=== PATIENT | female | born 1935 | race Caucasian/White ===

== ENCOUNTER 2019-12-03 10:53 | Inpatient (IN) | payer MEDICARE ==
[~2019-12-03] VITALS: Ht 162.6 cm; Wt 63.7 kg
[2019-12-03 11:42] LABS: BASO # 0.1 x10^3/uL (0.0-0.2); BASO % 1 % (0-3); EOS % 0 % (0-3); HEMATOCRIT 47.2 % (36.0-47.0); HEMOGLOBIN 15.8 g/dL (12.0-15.5); LYMPH # 1.1 x10^3/uL (1.0-4.8); LYMPH % 14 % (24-48); MEAN CORPUSCULAR HEMOGLOBIN 30 pg (25-35); MEAN CORPUSCULAR HGB CONC 34 g/dL (31-37); MEAN CORPUSCULAR VOLUME 89 fL (79-100); MONO # 0.6 x10^3/uL (0.0-1.1); MONO % 8 % (0-9); NEUT # 6.1 x10^3uL (1.8-7.7); NEUT % 78 % (31-73); PLATELET COUNT 384 x10^3/uL (140-400); RED CELL DISTRIBUTION WIDTH 13.9 % (11.5-14.5); WHITE BLOOD COUNT 7.8 x10^3/uL (4.0-11.0)
--- NOTE | 2019-12-03 11:49 | PHYS DOC ---
Past History Past Medical History: Hypertension Smoking: Non-smoker General Adult EDM: Chief Complaint: PSYCH EVALUATION HPI: HPI: Patient is an 84-year-old female who presents to the emergency department for evaluation. She has been having increasing confusion over the past several months according to her daughter and recently began experiencing some hallucinations, both auditory and delusional, over the past 2 months. Her PCP recommended [facility] hospitalization and the patient presents to the emergency department for medical clearance. She has no acute complaints at this time. She denies any pain, recent fevers and has not been ill recently. Review of Systems: Review of Systems: Constitutional: Denies fever or chills Eyes: Denies change in visual acuity HENT: Denies nasal congestion or sore throat Respiratory: Denies cough or shortness of breath Cardiovascular: Denies chest pain or edema GI: Denies abdominal pain, nausea, vomiting, bloody stools or diarrhea : Denies dysuria Musculoskeletal: Denies back pain or joint pain Integument: Denies rash Neurologic: Denies headache, focal weakness or sensory changes Endocrine: Denies polyuria or polydipsia Lymphatic: Denies swollen glands Psychiatric: Denies depression or anxiety Heart Score: Risk Factors: Risk Factors: DM, Current or recent (<one month) smoker, HTN, HLP, family history of CAD, obesity. Risk Scores: Score 0 - 3: 2.5% MACE over next 6 weeks - Discharge Home Score 4 - 6: 20.3% MACE over next 6 weeks - Admit for Clinical Observation Score 7 - 10: 72.7% MACE over next 6 weeks - Early Invasive Strategies Allergies: Allergies: Allergies Coded Allergies Type Severity Reaction Last Updated Verified atorvastatin Allergy Unknown 12/03/19 Yes colesevelam Allergy Unknown 12/03/19 Yes donepezil Allergy Unknown 12/03/19 Yes pravastatin Allergy Unknown 12/03/19 Yes rosuvastatin Allergy Unknown 12/03/19 Yes Physical Exam: PE: PHYSICAL EXAM: CONSTITUTIONAL: Well developed, well nourished HEAD: normocephalic, atraumatic EENT: PERRL, EOMI. Conjunctivae normal color, sclerae non-icteric; moist mucous membranes. NECK: Supple, non-tender; no meningismus. LUNGS: Lungs CTA, breathing even and unlabored. Normal air movement. HEART: Regular rate and rhythm, no murmur CHEST: No deformity; non-tender ABDOMEN: The abdomen is soft, and non-tender, no masses or bruits. EXTREM: Normal ROM; no deformity, no calf tenderness. Normal pulses palpable in all extremities. There is no pedal edema. SKIN: No rash; no diaphoresis NEURO: Alert; normal speech, mildly impaired cognition; CN's grossly intact; strength grossly intact without focal deficit. BACK: No CVA TTP. Current Patient Data: Labs: Laboratory Tests Test 12/03/19 11:18 White Blood Count 7.8 x10^3/uL (4.0-11.0) Red Blood Count 5.30 x10^6/uL (3.50-5.40) Hemoglobin 15.8 g/dL (12.0-15.5) H Hematocrit 47.2 % (36.0-47.0) H Mean Corpuscular Volume 89 fL (79-100) Mean Corpuscular Hemoglobin 30 pg (25-35) Mean Corpuscular Hemoglobin Concent 34 g/dL (31-37) Red Cell Distribution Width 13.9 % (11.5-14.5) Platelet Count 384 x10^3/uL (140-400) Neutrophils (%) (Auto) 78 % (31-73) H Lymphocytes (%) (Auto) 14 % (24-48) L Monocytes (%) (Auto) 8 % (0-9) Eosinophils (%) (Auto) 0 % (0-3) Basophils (%) (Auto) 1 % (0-3) Neutrophils # (Auto) 6.1 x10^3uL (1.8-7.7) Lymphocytes # (Auto) 1.1 x10^3/uL (1.0-4.8) Monocytes # (Auto) 0.6 x10^3/uL (0.0-1.1) Eosinophils # (Auto) 0.0 x10^3/uL (0.0-0.7) Basophils # (Auto) 0.1 x10^3/uL (0.0-0.2) Vital Signs: Vital Signs Date Time Temp Pulse Resp B/P (MAP) Pulse Ox O2 Delivery O2 Flow Rate FiO2 12/03/19 11:12 97.9 118 16 168/84 (112) 96 Room Air EKG: EKG: Normal sinus rhythm at a rate of 114 bpm, left axis deviation, right bundle branch block, there are no acute ischemic ST/T changes. [] Radiology/Procedures: Radiology/Procedures: [] Course & Med Decision Making: Course & Med Decision Making Pertinent Lab studies reviewed. (See chart for details) [] Patient is medically stable for psychiatric admission and will be transferred to the U. Dragon Disclaimer: Dragon Disclaimer: This electronic medical record was generated, in whole or in part, using a voice recognition dictation system. Departure Departure: Impression: Primary Impression: Psychosis Disposition: ADMITTED INPATIENT ([facility]) Condition: STABLE Referrals: MARISOL KAUR MD (PCP) FRED COLEMAN MD December 03, 2019 11:49
[2019-12-03 11:52] LABS: CALCIUM 10.4 mg/dL (8.5-10.1); CREATININE 0.8 mg/dL (0.6-1.0); GFR 68.2
[2019-12-03 11:58] LABS: ALBUMIN/GLOBULIN RATIO 1.1 (1.0-1.7); MAGNESIUM 2.2 mg/dL (1.8-2.4); TOTAL BILIRUBIN 0.3 mg/dL (0.2-1.0); TOTAL PROTEIN 7.6 g/dL (6.4-8.2)
[2019-12-03 12:06] LABS: BILIRUBIN,URINE NEG (NEG); CLARITY,URINE CLEAR; COLOR,URINE YELLOW; GLUCOSE,URINE NEG (NEG)
[2019-12-03 12:07] LABS: BACTERIA,URINE 0 /HPF (0-FEW); NITRITE,URINE NEG (NEG); RBC,URINE OCC /HPF (0-2); SQUAMOUS EPITHELIAL CELL,UR FEW /LPF; UROBILINOGEN,URINE 0.2 mg/dL (0.2 mg/dL); WBC,URINE OCC /HPF (0-4)
[2019-12-03 14:00] VITALS: BP 164/86
[2019-12-03] MEDS ORDERED: ACETAMINOPHEN 325 MG TABLET PO PRN (14:15)
[2019-12-03] MEDS ORDERED: MAG HYDROX/AL HYDROX/SIMETH 30 ML ORAL.SUSP PO PRN (14:15)
[2019-12-03] MEDS ORDERED: METHYL SALICYLATE/MENTHOL TOPICAL OINTMENT 57GM TUBE. TP PRN (14:15)
[2019-12-03] MEDS ORDERED: MAGNESIUM HYDROXIDE 2,400 MG/30 ML ORAL.SUSP. PO PRN (14:15)
[2019-12-03] MEDS ORDERED: VENL150C PO (14:53)
[2019-12-03] MEDS ORDERED: VENL37.5 PO (14:53)
[2019-12-03] MEDS ORDERED: EZET10TA49 PO (14:53)
[2019-12-03] MEDS ORDERED: OMEG10005 PO (14:53)
[2019-12-03] MEDS ORDERED: MIRT15TA PO (14:53)
[2019-12-03] MEDS ORDERED: LISI10TA2 PO (14:53)
[2019-12-03] MEDS ORDERED: OMEP20TA8 PO (14:53)
[2019-12-03] MEDS ORDERED: DIPH25CA58 PO (14:53)
[2019-12-03] MEDS ORDERED: BIOT5000 PO (14:53)
[2019-12-03] MEDS ORDERED: MULT-245 PO (14:53)
[2019-12-03] MEDS ORDERED: ACET500T68 PO ×2 (14:53)
[2019-12-03] MEDS ORDERED: LORA10TA3 PO (14:53)
[2019-12-03] MEDS ORDERED: MAGN200T PO (14:53)
[2019-12-03] MEDS ORDERED: METF500T11 PO (14:53)
[2019-12-03] MEDS ORDERED: CHOL100013 PO (14:53)
[2019-12-03] MEDS ORDERED: NON FORMULARY ITEM (Loratadine 10 MG) PO PRN (15:00)
[2019-12-03] MEDS ORDERED: NON FORMULARY ITEM (Omeprazole 20 MG) PO PRN (15:00)
[2019-12-03] MEDS ORDERED: CETIRIZINE HCL 10 MG TABLET PO PRN (15:45)
--- NOTE | 2019-12-03 16:04 | RAD ---
RS Compliance Statement: One or more of the following individualized dose reduction techniques were utilized for this examination: 1. Automated exposure control 2. Adjustment of the mA and/or kV according to patient size 3. Use of iterative reconstruction technique CT HEAD WITHOUT CONTRAST History: Recent onset auditory hallucinations. Comparison: None. Technique: Axial images are obtained of the head from the skull base through the vertex without IV contrast. Findings: No mass-effect, midline shift, extra-axial fluid collection, hemorrhage, or obvious acute infarction is identified. Basilar cisterns are patent. The ventricles and sulci are prominent, consistent with age-related cerebral atrophy. There is minimal periventricular white matter hypoattenuation. This is a nonspecific finding but is commonly due to chronic small vessel ischemic disease. Bone windows demonstrate no acute calvarial abnormality. The visualized paranasal sinuses are clear. Mastoid air cells are well aerated. IMPRESSION: 1. No acute intracranial abnormality. 2. Generalized cerebral atrophy. Electronically signed by: Ronnell Wallace MD (12/03/2019 4:01 PM) [id number]
[2019-12-03 16:08] VITALS: BP 164/85
--- NOTE | 2019-12-03 20:30 | CONS ---
DATE OF CONSULTATION: 12/03/2019 REASON FOR CONSULTATION: Medical management. HISTORY OF PRESENT ILLNESS: The patient is an 84-year-old female patient who was admitted to [facility] from home on account of new onset of psychotic disorder, unspecified. She basically has increased anxiety, insomnia. She also has auditory hallucination, thinks neighbors can hear her and watch her via camera and installed electronics in her brain to track her. She also said that she hears music constantly and also hear people trying to influence her, all this started about according to her 6 weeks ago and the noise does not allow her to sleep. PAST MEDICAL HISTORY: Significant for type 2 diabetes mellitus, hypertension, hyperlipidemia, generalized osteoarthritis, plantar fasciitis, polymyalgia rheumatica. PAST SURGICAL HISTORY: Unremarkable. FAMILY HISTORY: Noncontributory. SOCIAL HISTORY: She lives alone. She has one daughter. She does not smoke, drink alcohol or use recreational drugs. 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 ALLERGIES: SHE IS ALLERGIC TO ATORVASTATIN, ARICEPT, PRAVASTATIN, ROSUVASTATIN. MEDICATIONS: She is currently on following medications: She is on diphenhydramine 25 mg at bedtime, loratadine 10 mg once a day as needed, Zetia 10 mg once a day, omega-3 fatty acid 1000 mg daily, lisinopril 10 mg once a day, Tylenol 500 mg as needed for pain, Tylenol 500 mg at bedtime scheduled. She is on mirtazapine 7.5 mg at bedtime, venlafaxine for Effexor XR 150 mg once a day, venlafaxine XR 75 mg daily. She is on magnesium 200 mg daily, omeprazole 20 mg once a day, metformin 500 mg once a day, Biotin 5000 mcg tablet once a day, and vitamin D3 25 mcg once a day, multivitamin 1 tablet once a day. PHYSICAL EXAMINATION: GENERAL: On examining her, the patient looked well and was clearly in no apparent respiratory distress. There was no pallor, jaundice, cyanosis or thyromegaly. No jugular venous distention. No limb edema. VITAL SIGNS: Her heart rate was 115, blood pressure was 164/85, temperature was 98.3, respiratory rate was 20, and oxygen saturation was 94% on room air. HEAD, EYES, EARS, NOSE AND THROAT: She is normocephalic, atraumatic. NECK: Supple. CARDIAC: Normal first and second heart sounds. No gallop, rub or murmur. CHEST: Clear to auscultation. No crepitation or rhonchi. ABDOMEN: Distended, soft, nontender. No guarding or rigidity. No organomegaly. All hernial orifice intact. Bowel sounds normal. NEUROLOGIC: She was alert. All her cranial nerves are intact. EXTREMITIES: She moves extremities without difficulty. She ambulates without assistance or assistive devices. LABORATORY DATA: Showed a white cell count of 7800, hemoglobin 16, hematocrit 47, MCV 89 and platelet count 384,000. Her chemistry showed a serum sodium 138, potassium 4, chloride 101, bicarbonate 28, anion gap of 9, BUN 13, creatinine 0.8, estimated GFR was 68 mL per minute. Her glucose was 130. Her calcium was 7.4, magnesium was normal at 2.2. Total bilirubin, AST, ALT, alkaline phosphatase were normal. Her total protein was 7.6, albumin 4. Urinalysis was essentially unremarkable. The urine was yellow, clear with a pH of 7, specific gravity of 1.020, urine was negative for protein, glucose, ketones, blood, nitrites, and leukocyte esterase. There are occasional rbc's, occasional wbc's, and no bacteria. She did have a CT scan of the head, which basically showed no mass effect, midline shift, extraaxial fluid collection, hemorrhage or obvious acute infarction identified. Her basilar cisterns are patent. The ventricles and sulci are prominent consistent with age-related cerebral atrophy. There is minimal periventricular white matter hypoattenuation. This is a nonspecific finding, but is commonly due to chronic small vessel ischemic disease. Bone windows demonstrate no acute calvarial abnormality. The visualized paranasal sinuses are clear. Mastoid air cells are well aerated. ASSESSMENT AND PLAN: In summary, this is an 84-year-old female patient, who was admitted on account of increased anxiety, insomnia, auditory hallucination thinks neighbors can hear her, watching her via camera, installed electronics in her brain to track her. All this on a psychotic disorder, unspecified. Medically, she obviously somewhat hypertensive for which she is on lisinopril 10 mg once a day. She has also some tachycardia with heart rate of 110-115. She is known to have hyperlipidemia. She is also on metformin for a presumed type 2 diabetes mellitus, vitamin D deficiency, and carries a diagnosis of polymyalgia rheumatica. She did complain of some stiffness in her joints. My plan is to monitor her blood pressure and heart rate and she might require beta blockers to control both heart rate and blood pressure. I will also check her sed rate and C-reactive protein to see whether her polymyalgia rheumatica is active and whether that might be contributing to her auditory hallucination. I do not see any steroids on her list of medications and if the inflammatory markers are high, she might benefit from steroid treatment. CHRISTIE STEVENSON MD DR: CHELLY/heri JOB#: [id number] / [id number]
[2019-12-03] MEDS ORDERED: ACETAMINOPHEN 500 MG TABLET PO PRN (21:00)
[2019-12-03] MEDS: ACETAMINOPHEN 500 MG TABLET PO SCH (21:15)
[2019-12-03] MEDS: LISINOPRIL 10 MG TABLET PO SCH (21:15)
[2019-12-03] MEDS: MIRTAZAPINE 15 MG TABLET PO SCH (21:15)
--- NOTE | 2019-12-03 22:25 | PDOC ---
Exam Note: Benjamin Note: Please also refer to the separate dictated note~for this date of service dictated separately. Discussed the patient with Nursing staff reviewed the chart.~Reviewed interim history and current functioning. Reviewed vital signs,~Labs/ Radiology~and current medications noted below. Continue current treatment with the changes noted in the dictated addendum note Assessment: Vital Signs/I&O: Vital Signs Date Time Temp Pulse Resp B/P (MAP) Pulse Ox O2 Delivery O2 Flow Rate FiO2 12/03/19 21:15 115 164/85 12/03/19 20:37 98.2 95 12/03/19 16:08 20 12/03/19 11:21 Room Air Labs: Laboratory Tests Test 12/03/19 11:08 12/03/19 11:18 Urine Collection Type Unknown Urine Color Yellow Urine Clarity Clear Urine pH 7.0 Urine Specific Greer 1.020 Urine Protein Neg (NEG-TRACE) Urine Glucose (UA) Neg mg/dL (NEG) Urine Ketones (Stick) Neg mg/dL (NEG) Urine Blood Neg (NEG) Urine Nitrite Neg (NEG) Urine Bilirubin Neg (NEG) Urine Urobilinogen Dipstick 0.2 mg/dL (0.2 mg/dL) Urine Leukocyte Esterase Neg (NEG) Urine RBC Occ /HPF (0-2) Urine WBC Occ /HPF (0-4) Urine Squamous Epithelial Cells Few /LPF Urine Bacteria 0 /HPF (0-FEW) Urine Mucus Slight /LPF White Blood Count 7.8 x10^3/uL (4.0-11.0) Red Blood Count 5.30 x10^6/uL (3.50-5.40) Hemoglobin 15.8 g/dL (12.0-15.5) H Hematocrit 47.2 % (36.0-47.0) H Mean Corpuscular Volume 89 fL (79-100) Mean Corpuscular Hemoglobin 30 pg (25-35) Mean Corpuscular Hemoglobin Concent 34 g/dL (31-37) Red Cell Distribution Width 13.9 % (11.5-14.5) Platelet Count 384 x10^3/uL (140-400) Neutrophils (%) (Auto) 78 % (31-73) H Lymphocytes (%) (Auto) 14 % (24-48) L Monocytes (%) (Auto) 8 % (0-9) Eosinophils (%) (Auto) 0 % (0-3) Basophils (%) (Auto) 1 % (0-3) Neutrophils # (Auto) 6.1 x10^3uL (1.8-7.7) Lymphocytes # (Auto) 1.1 x10^3/uL (1.0-4.8) Monocytes # (Auto) 0.6 x10^3/uL (0.0-1.1) Eosinophils # (Auto) 0.0 x10^3/uL (0.0-0.7) Basophils # (Auto) 0.1 x10^3/uL (0.0-0.2) Sodium Level 138 mmol/L (136-145) Potassium Level 4.0 mmol/L (3.5-5.1) Chloride Level 101 mmol/L (98-107) Carbon Dioxide Level 28 mmol/L (21-32) Anion Gap 9 (6-14) Blood Urea Nitrogen 13 mg/dL (7-20) Creatinine 0.8 mg/dL (0.6-1.0) Estimated GFR (Cockcroft-Gault) 68.2 BUN/Creatinine Ratio 16 (6-20) Glucose Level 130 mg/dL (70-99) H Calcium Level 10.4 mg/dL (8.5-10.1) H Magnesium Level 2.2 mg/dL (1.8-2.4) Total Bilirubin 0.3 mg/dL (0.2-1.0) Aspartate Amino Transferase (AST) 18 U/L (15-37) Alanine Aminotransferase (ALT) 25 U/L (14-59) Alkaline Phosphatase 65 U/L (46-116) Total Protein 7.6 g/dL (6.4-8.2) Albumin 4.0 g/dL (3.4-5.0) Albumin/Globulin Ratio 1.1 (1.0-1.7) Current Medications: Meds: Current Medications Medications (Trade) Dose Ordered Sig/Ed Route PRN Reason Start Time Stop Time Status Last Admin Dose Admin Acetaminophen (Tylenol) 500 mg QHS PO 12/03/19 21:00 12/03/19 21:15 Lisinopril (Prinivil) 10 mg HS PO 12/03/19 21:00 12/03/19 21:15 Mirtazapine (Remeron) 7.5 mg HS PO 5/12/20 21:00 12/03/19 21:15 Olanzapine (ZyPREXA ZYDIS) 2.5 mg PRN Q2HRS PRN PO psychosis/hallucinations 12/03/19 15:15 12/03/19 17:09 I have reviewed the current psychotropics carefully including drug interactions. Risk benefit ratio favors no change other than as noted in my dictated progress note. Diagnosis: Problems: (1) Psychosis SOHAN KEARNS MD December 03, 2019 22:25
--- NOTE | 2019-12-04 03:55 | EKG ---
[address] [address] Test Date: 2019-12-03 Test Time: 11:27:00 Pat Name: JORDAN PETTY Department: Room: [address] [place] [address] Gender: F Eligibility Counselor: GLADIS : 1935 Requested By: FRED COLEMAN Order Number: [id number] Reading MD: Mathew Peñaloza Measurements Intervals [place] Rate: 114 P: 38 KS: 152 QRS: -69 QRSD: 126 T: 56 QT: 330 QTc: 458 Interpretive Statements SINUS TACHYCARDIA ABNORMAL LEFT AXIS DEVIATION LEFT ANTERIOR FASCICULAR BLOCK RIGHT BUNDLE BRANCH BLOCK BIFASCICULAR BLOCK ABNORMAL ECG RI6.02 No previous ECG available for comparison Electronically Signed On 12-04-2019 8:27:33 CDT by Mathew Peñaloza
[2019-12-04 05:10] LABS: THYROXINE 7.7 ug/dL (4.5-12.0)
[2019-12-04 06:07] LABS: HEMOGLOBIN A1C 5.9 % (4.8-5.6)
[2019-12-04 06:25] VITALS: BP 131/79
[2019-12-04] MEDS: MAGNESIUM OXIDE 400 MG TABLET PO SCH (08:57)
[2019-12-04] MEDS: PANTOPRAZOLE 40 MG TABLET. PO SCH (08:58)
[2019-12-04] MEDS: CHOLECALCIFEROL (VITAMIN D3) 1,000 UNIT TABLET PO SCH (08:58)
[2019-12-04] MEDS: metFORMIN XR 500 MG TAB.ER.24H PO SCH (08:58)
[2019-12-04] MEDS: EZETIMIBE 10 MG TABLET PO SCH (08:58)
[2019-12-04] MEDS: MULTIVITAMIN I-VITE TABLET. PO SCH (08:58)
[2019-12-04] MEDS: OMEGA-3 FATTY ACIDS/FISH OIL 1,000 MG CAPSULE. PO SCH (08:58)
[2019-12-04] MEDS ORDERED: OMEGA PO SCH (09:00)
[2019-12-04] MEDS ORDERED: VENLAFAXINE XR 37.5 MG CAP.ER.24H. PO SCH ×2 (09:00)
[2019-12-04] MEDS ORDERED: CHOLECALCIFEROL 25 MCG PO SCH (09:00)
[2019-12-04] MEDS ORDERED: MAGNESIUM 200 MG PO SCH (09:00)
[2019-12-04] MEDS ORDERED: NON FORMULARY ITEM (Biotin 5,000 MCG) PO SCH (09:00)
[2019-12-04] MEDS ORDERED: NON FORMULARY ITEM (Venlafaxine Hcl (Effexor Xr) 150 MG) PO SCH (09:00)
[2019-12-04] MEDS ORDERED: NON FORMULARY ITEM (Multivitamin (Multi Vitamin Daily) 1 EACH) PO SCH (09:00)
--- NOTE | 2019-12-04 13:28 | HP ---
ADMIT DATE: 12/03/2019 This late entry covers elements not covered in my initial note, December 02. SUBJECTIVE: I met with the patient evening of December 02 for audiovisual rounds and previously discussed with nursing staff and Saskia Khan, property management coordinator. IDENTIFYING DATA: The patient is an 84-year-old female referred to us from home by her primary care physician and the family on account of increased anxiety, marked insomnia, having auditory hallucinations. The patient was thinking that the neighbors could hear her and were watching her via the camera and had installed electronics in her brain to track her. She was paranoid, psychotic, agitated, had failed outpatient psychiatric intervention resulting in this referral. CHIEF COMPLAINT: "You need to talk to my daughter Anita." The patient was initially very hesitant sharing information and she was aware of her psychotic symptoms, which she alluded to much more openly as the visit proceeded than she had initially. HISTORY OF PRESENT ILLNESS: The patient reportedly has had worsening psychotic symptoms, paranoia, delusions with marked insomnia, agitation. There has been nothing psychosocially to account for this change that has been stressful, but behaviors have been unmanageable at the home and have failed outpatient psychiatric interventions. No clear history of bipolar disorder. Cognitively, she has been reasonably intact, though she may have some short-term memory deficits and incipient dementia, Alzheimer's vascular. PAST PSYCHIATRIC HISTORY: As above. MEDICAL HISTORY: Positive for hyperlipidemia, osteoarthritis, plantar fasciitis, polymyalgia rheumatica, hypertension. CODE STATUS: DNR. ALLERGIES: ARICEPT, WELCHOL, LIPITOR, CRESTOR, PRAVASTATIN. ACCU-CHEKS: None. DIET: Regular. Takes medications whole, ambulates independently. COVID-19 test was negative prior to admission. UA is negative. CURRENT PSYCHOTROPICS: Remeron 7.5 mg at bedtime, Effexor 225 mg daily, Zyprexa was added p.r.n. for psychosis, agitation, following admission after the nursing staff called me as an emergency due to her marked psychotic symptoms, agitation, restlessness, hallucinations and being fearful of all of this. FAMILY HISTORY: Noncontributory. SOCIAL HISTORY: The patient has no history of alcohol, drug abuse, physical, sexual or elder abuse. She is not known to be a perpetrator. 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 LABORATORY DATA: Reviewed. REVIEW OF SYSTEMS: No CV, , pulmonary, eye, ENT system symptoms on review. MENTAL STATUS EXAMINATION: The patient was seen individually and also discussed with LONI Copeland. Initially, she was quite paranoid, suspicious, not very forthcoming on audiovisual rounds, but much better as the session progressed. Speech is coherent, abstraction fair, computation somewhat impaired, language function intact, attention span short. The patient has had active hallucinations since admission, paranoia. No active suicidal or homicidal ideation. LABORATORY DATA: Reviewed. IMPRESSION: Psychotic disorder, unspecified versus major depressive disorder with psychotic features; mild cognitive impairment; anxiety disorder, unspecified. Rest as above. PLAN: Admit to [facility]iat[facility] at [facility]. I will see the patient daily individually from a psychiatric standpoint. Medical followup per Dr. Vale. Continue the patient on her current psychotropics, Zyprexa was added p.r.n. 2.5 mg q. 2 hours, maximum 10 mg in 24 hours for psychosis, agitation. May consider reducing the Effexor given her age and propensity to exacerbate some psychotic symptoms. We will use Zyprexa p.r.n. Consider adding scheduled Risperdal or low dose Seroquel. We will have a CT head as workup of any intracranial changes accounting for her psychotic symptoms. We will make further adjustments as clinically indicated. Estimated length of stay 10-12 days. DISPOSITION PLANS: Possibly back home with outpatient psychiatric followup. SOHAN KEARNS MD DR: MATT/heri JOB#: [id number] / [id number]
[2019-12-04 14:46] LABS: THYROID STIM HORMONE (TSH) 0.956 uIU/mL (0.358-3.740)
[2019-12-04 15:49] VITALS: BP 101/66
[2019-12-04 19:49] VITALS: BP 109/71
[2019-12-04] MEDS: MIRTAZAPINE 15 MG TABLET PO SCH (20:14)
[2019-12-04] MEDS: ACETAMINOPHEN 500 MG TABLET PO SCH (20:14)
[2019-12-04] MEDS: risperiDONE 0.25 MG TABLET. PO SCH (20:15)
[2019-12-04 21:21] VITALS: BP 117/71
[2019-12-04] MEDS: LISINOPRIL 10 MG TABLET PO SCH (21:43)
[2019-12-04] MEDS: diphenhydrAMINE HCL 25 MG CAPSULE PO PRN (21:43)
--- NOTE | 2019-12-04 21:58 | PDOC ---
Exam Note: Benjamin Note: Please also refer to the separate dictated note~for this date of service dictated separately.~Patient seen individually. Discussed the patient with Nursing staff reviewed the chart.~Reviewed interim history and current functioning. Reviewed vital signs,~Labs/ Radiology~and current medications noted below. Continue current treatment with the changes noted in the dictated addendum note Assessment: Vital Signs/I&O: Vital Signs Date Time Temp Pulse Resp B/P (MAP) Pulse Ox O2 Delivery O2 Flow Rate FiO2 12/04/19 21:43 105 117/71 12/04/19 20:18 98.1 96 12/04/19 19:49 18 Room Air I & O 12/03/19 12/03/19 12/04/19 15:00 23:00 07:00 Intake Total 340 ml Balance 340 ml Labs: Laboratory Tests Test 12/04/19 06:01 C-Reactive Protein < 0.5 mg/L (0-3.3) Current Medications: Meds: Current Medications Medications (Trade) Dose Ordered Sig/Ed Route PRN Reason Start Time Stop Time Status Last Admin Dose Admin EZETIMIBE (Zetia) 10 mg DAILY PO 12/04/19 09:00 12/04/19 08:58 Metformin HCl (Glucophage Xr) 500 mg DAILYWBKFT PO 12/04/19 08:00 12/04/19 08:58 Vitamin D (Vitamin D3) 1,000 unit DAILY PO 12/04/19 09:00 12/04/19 08:58 Magnesium Oxide (Magnesium Oxide) 200 mg DAILY PO 12/04/19 09:00 12/04/19 08:57 Multivitamins/ Minerals (I-Eliu) 1 tab DAILY PO 12/04/19 09:00 12/04/19 08:58 Fish Oil (Fish Oil) 1,000 mg DAILY PO 12/04/19 09:00 12/04/19 08:58 Pantoprazole Sodium (Protonix) 40 mg DAILYAC PO 12/04/19 07:30 12/04/19 08:58 Venlafaxine HCl (Effexor Xr) 225 mg DAILY PO 12/04/19 09:00 12/04/19 14:32 DC 12/04/19 08:57 Risperidone (RisperDAL) 0.125 mg QHS PO 12/04/19 21:00 12/04/19 20:15 I have reviewed the current psychotropics carefully including drug interactions. Risk benefit ratio favors no change other than as noted in my dictated progress note. Diagnosis: Problems: (1) Psychosis (2) Major depressive disorder with psychotic features (3) Mild cognitive impairment (4) Anxiety disorder, unspecified (5) Psychotic disorder SOHAN KEARNS MD December 04, 2019 21:58
[2019-12-04] MEDS ORDERED: traZODone 50 MG TABLET. PO PRN (23:00)
[2019-12-05 05:16] VITALS: BP 160/81
[2019-12-05 06:03] LABS: BASO % 1 % (0-3); EOS # 0.1 x10^3/uL (0.0-0.7); EOS % 3 % (0-3); HEMATOCRIT 41.7 % (36.0-47.0); LYMPH # 0.9 x10^3/uL (1.0-4.8); LYMPH % 20 % (24-48); MEAN CORPUSCULAR HEMOGLOBIN 30 pg (25-35); MEAN CORPUSCULAR HGB CONC 34 g/dL (31-37); MEAN CORPUSCULAR VOLUME 89 fL (79-100); MONO # 0.5 x10^3/uL (0.0-1.1); MONO % 11 % (0-9); NEUT % 65 % (31-73); PLATELET COUNT 289 x10^3/uL (140-400); RED BLOOD COUNT 4.69 x10^6/uL (3.50-5.40); RED CELL DISTRIBUTION WIDTH 14.1 % (11.5-14.5); WHITE BLOOD COUNT 4.6 x10^3/uL (4.0-11.0)
[2019-12-05 06:18] LABS: ALBUMIN 3.2 g/dL (3.4-5.0); ALBUMIN/GLOBULIN RATIO 1.1 (1.0-1.7); CREATININE 0.8 mg/dL (0.6-1.0); GFR 68.2; POTASSIUM 3.7 mmol/L (3.5-5.1); TOTAL BILIRUBIN 0.3 mg/dL (0.2-1.0); TOTAL PROTEIN 6.1 g/dL (6.4-8.2)
[2019-12-05] MEDS: PANTOPRAZOLE 40 MG TABLET. PO SCH (08:41)
[2019-12-05] MEDS: MAGNESIUM OXIDE 400 MG TABLET PO SCH (08:41)
[2019-12-05] MEDS: OMEGA-3 FATTY ACIDS/FISH OIL 1,000 MG CAPSULE. PO SCH (08:41)
[2019-12-05] MEDS: VENLAFAXINE XR 37.5 MG CAP.ER.24H. PO SCH (08:42)
[2019-12-05] MEDS: metFORMIN XR 500 MG TAB.ER.24H PO SCH (08:42)
[2019-12-05] MEDS: EZETIMIBE 10 MG TABLET PO SCH (08:44)
[2019-12-05] MEDS: MULTIVITAMIN I-VITE TABLET. PO SCH (08:44)
[2019-12-05] MEDS: CHOLECALCIFEROL (VITAMIN D3) 1,000 UNIT TABLET PO SCH (08:44)
--- NOTE | 2019-12-05 12:42 | TX PLAN ---
Interdisciplinary Tx Plan Admission Information December 03, 2019 at 13:37 Legal Status (on Admission): Voluntary DPOA/Guardian Name: Meka Humphrey Contact Verified Code Status: DNR Allergies: Coded Allergies: atorvastatin (Verified Allergy, Unknown, 12/03/19) colesevelam (Verified Allergy, Unknown, 12/03/19) donepezil (Verified Allergy, Unknown, 12/03/19) pravastatin (Verified Allergy, Unknown, 12/03/19) rosuvastatin (Verified Allergy, Unknown, 12/03/19) Diagnoses Primary Diagnosis: Psychotic D/O unspecified Reasons for Admission: Delusions, Sig. Change Sleep, Anxiety/Panic, Confusion/Disoriented Problem in Patient's Words: She has significantly declined over the last 2 months and cannot bring herself out of it. Additional Admission Comments: According to the intake, pt has increased anxiety, insomnia, auditory hallucinations, thinks the neighbors can hear her and are watching her via camera; thinks they installed electronics in her brain to track her. Pt is scared to live at home Problems Active Problems: Anxiety Auditory hallucinations Poor sleep Paranoia Inactive Problems: Medication compliant Pt Strengths/Limitations Ability for [place]: Fair Cognitive Functioning/Ability: Fair Communication Skills/Ability: Fair Financial Resources: Poor Insight/Judgement: Fair Intellectual Ability: Fair Physical Health: Fair Social Skills: Fair Stability in Family: Fair Stability in School/Work: Fair Verbal Skills: Fair Discharge Criteria Discharge Criteria: Able meet basic life need, Able to meet health needs, Adequate arrangements @DC, Verbal commit aftercare, Adequate self-care, Improved behavior, Improved mood/thought Preliminary Discharge Plan Preliminary DC Plan: Placement Needed Special Precautions Fall Risk: Low Initial D/C Plan Pt does not wish to return to her [facility]; placement may be needed. Identified Discharge Needs: Pt will need a different living situation. Home with services versus an JF Currently Utilized Resources Currently Utilized Resources/P: Primary Care Physician Neurologist Referrals Community Resources: Mental Health services Identified Problems/Hx/Goals Objectives/Short-Term Goals Short Term Goals: Dec. Hallucination/Delus, Medication Stabilization, No Suicidal/Romulo. ideation, Promote Coping Skill Short Term Goals in Patient's: I want to be at peace and not have to live like this all the time. Interventions/Frequency Staff Interventions/Frequency&: Psychiatrist to see pt at least 3x per week. Social Work to see pt at least 2x per week. Nursing to assess and complete 15 minute checks daily. Encourage group and activity participation OR 1:1 time based on activity therapy assessment/goals. 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 Education: Pt graduated high school in the 12th grade. Community Follow-up Needs to continue to follow-up with PCP May need appointment with Estephanie Ross for continued mental health services. Community Provider/Family Inpu: She has not been okay in the last 2 months. She needs to be evaluated and next steps need to be decided. 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
[2019-12-05 15:37] VITALS: BP 131/75
[2019-12-05] MEDS: LISINOPRIL 10 MG TABLET PO SCH (20:44)
[2019-12-05] MEDS: MIRTAZAPINE 15 MG TABLET PO SCH (20:44)
[2019-12-05] MEDS: traZODone 50 MG TABLET. PO SCH (20:44)
[2019-12-05] MEDS: risperiDONE 0.25 MG TABLET. PO SCH (20:45)
[2019-12-05] MEDS: ACETAMINOPHEN 500 MG TABLET PO SCH (20:45)
--- NOTE | 2019-12-05 21:54 | PN ---
DATE: 12/04/2019 PSYCHIATRIC PROGRESS NOTE SUBJECTIVE: The patient was seen on , evening of 12/04/2019 individually. Per LONI Copeland, the patient slept for three-quarter hours previous night, was anxious, restless, having intermittent delusions, received Zyprexa at 3:20 p.m. Additionally, she is on Effexor XR 225 mg a day. We will reduce to 150 mg a day since this could be exacerbating her psychotic symptoms. She is talking about hearing [employer] music in the background, someone talking in the background. CT head shows no acute changes, cerebral atrophy, ventricular or vascular changes. REVIEW OF SYSTEMS: No CV, , pulmonary, eye system symptoms on review. Hard of hearing, but she did put on her hearing aids as I talked to her. MENTAL STATUS EXAM: Reasonably oriented. Speech is coherent, abstraction fair, computation impaired, language function intact, attention span short. Mood and affect somewhat anxious, labile. LABORATORY DATA: Reviewed. IMPRESSION: Major depressive disorder, recurrent with psychotic features; psychotic disorder, unspecified; mild cognitive impairment versus major neurocognitive disorder, vascular with delusion, depression. Rest unchanged. PLAN: We will go ahead and start Risperdal 0.125 mg at bedtime for psychotic symptoms. She slept for 3/4 hours previous night. Continue Remeron 7.5 mg at bedtime, Effexor has been reduced. Zyprexa p.r.n. for now. MAN Jennifer KEARNS MD DR: MATT/heri JOB#: [id number] / [id number]
--- NOTE | 2019-12-05 22:05 | PDOC ---
Exam Note: Benjamin Note: Please also refer to the separate dictated note~for this date of service dictated separately.~Patient seen individually. Discussed the patient with Nursing staff reviewed the chart.~Reviewed interim history and current functioning. Reviewed vital signs,~Labs/ Radiology~and current medications noted below. Continue current treatment with the changes noted in the dictated addendum note Assessment: Vital Signs/I&O: Vital Signs Date Time Temp Pulse Resp B/P (MAP) Pulse Ox O2 Delivery O2 Flow Rate FiO2 12/05/19 21:04 98.2 95 12/05/19 20:44 112 131/75 12/05/19 15:37 20 12/05/19 05:16 Room Air I & O 12/04/19 12/04/19 12/05/19 15:00 23:00 07:00 Intake Total 720 ml 460 ml Balance 720 ml 460 ml Labs: Laboratory Tests Test 12/05/19 05:53 White Blood Count 4.6 x10^3/uL (4.0-11.0) Red Blood Count 4.69 x10^6/uL (3.50-5.40) Hemoglobin 14.0 g/dL (12.0-15.5) Hematocrit 41.7 % (36.0-47.0) Mean Corpuscular Volume 89 fL (79-100) Mean Corpuscular Hemoglobin 30 pg (25-35) Mean Corpuscular Hemoglobin Concent 34 g/dL (31-37) Red Cell Distribution Width 14.1 % (11.5-14.5) Platelet Count 289 x10^3/uL (140-400) Neutrophils (%) (Auto) 65 % (31-73) Lymphocytes (%) (Auto) 20 % (24-48) L Monocytes (%) (Auto) 11 % (0-9) H Eosinophils (%) (Auto) 3 % (0-3) Basophils (%) (Auto) 1 % (0-3) Neutrophils # (Auto) 3.0 x10^3uL (1.8-7.7) Lymphocytes # (Auto) 0.9 x10^3/uL (1.0-4.8) L Monocytes # (Auto) 0.5 x10^3/uL (0.0-1.1) Eosinophils # (Auto) 0.1 x10^3/uL (0.0-0.7) Basophils # (Auto) 0.0 x10^3/uL (0.0-0.2) Sodium Level 140 mmol/L (136-145) Potassium Level 3.7 mmol/L (3.5-5.1) Chloride Level 105 mmol/L (98-107) Carbon Dioxide Level 29 mmol/L (21-32) Anion Gap 6 (6-14) Blood Urea Nitrogen 19 mg/dL (7-20) Creatinine 0.8 mg/dL (0.6-1.0) Estimated GFR (Cockcroft-Gault) 68.2 BUN/Creatinine Ratio 24 (6-20) H Glucose Level 118 mg/dL (70-99) H Calcium Level 9.0 mg/dL (8.5-10.1) Total Bilirubin 0.3 mg/dL (0.2-1.0) Aspartate Amino Transferase (AST) 18 U/L (15-37) Alanine Aminotransferase (ALT) 24 U/L (14-59) Alkaline Phosphatase 49 U/L (46-116) Total Protein 6.1 g/dL (6.4-8.2) L Albumin 3.2 g/dL (3.4-5.0) L Albumin/Globulin Ratio 1.1 (1.0-1.7) Current Medications: Meds: Current Medications Medications (Trade) Dose Ordered Sig/Ed Route PRN Reason Start Time Stop Time Status Last Admin Dose Admin Venlafaxine HCl (Effexor Xr) 150 mg DAILY PO 12/05/19 09:00 12/05/19 08:42 Trazodone HCl (Desyrel) 25 mg QHS PO 12/05/19 21:00 12/05/19 20:44 I have reviewed the current psychotropics carefully including drug interactions. Risk benefit ratio favors no change other than as noted in my dictated progress note. Diagnosis: Problems: (1) Psychosis (2) Mild cognitive impairment (3) Anxiety disorder, unspecified (4) Major depressive disorder with psychotic features (5) Psychotic disorder SOHAN KEARNS MD December 05, 2019 22:05
--- NOTE | 2019-12-05 22:14 | PN ---
DATE: 12/05/2019 PSYCHIATRIC PROGRESS NOTE This note covers elements not covered in my initial note 12/05/2019. SUBJECTIVE: I met with the patient evening of 12/05/2019 on audiovisual rounds and staffed a treatment team meeting with the entire team in the morning with the patient's daughter, Meka simmons. Reviewed her progress, some ongoing hallucinations despite initiating Risperdal 0.125 mg at bedtime. Appetite 68%, slept 4-1/2 hours previous night. Daughter gave a very helpful history of a psychotic break approximately 40 years ago with marked paranoia about the neighbors and this lasted about 2 or 3 weeks when she was about age 44 at that time. Her shortly thereafter. Her daughter feels there were significant psychosocial stresses in the patient's early life including that her father refused to attend her wedding. Towards the evening, her auditory and visual hallucinations seemed to increase. REVIEW OF SYSTEMS: Hard of hearing. No CV, , pulmonary, eye system symptoms on review. MENTAL STATUS EXAMINATION: Oriented to herself and situation. Speech is coherent, abstraction fair, computation impaired, language function intact, attention span short. Mood and affect withdrawn. LABORATORY DATA: Reviewed. IMPRESSION: Psychotic disorder, unspecified; early major neurocognitive disorder, Alzheimer, vascular with delusion, depression. Rest unchanged. PLAN: Daughter will try and obtain past psychiatric records for clarification of primary psychiatric diagnosis. Failing this, it would appear she has early stages of dementia, probably Alzheimer, vascular, which could be causing worsening of her psychosis. Nevertheless, she has had the psychotic symptoms in the distant past, which would point to a primary psychiatric disorder. We will treat symptomatically with Risperdal for psychotic symptoms and once we get the past records, may consider adding Depakote as a mood stabilizer, but best if we can avoid it. Maintain Remeron 7.5 mg at bedtime, Effexor was reduced to 150 mg a day, Zyprexa p.r.n., rest unchanged, and trazodone for insomnia. MAN Jennifer KEARNS MD DR: MATT/heri JOB#: [id number] / [id number]
[2019-12-06 06:37] VITALS: BP 170/90
[2019-12-06] MEDS: MULTIVITAMIN I-VITE TABLET. PO SCH (07:54)
[2019-12-06] MEDS: metFORMIN XR 500 MG TAB.ER.24H PO SCH (07:54)
[2019-12-06] MEDS: MAGNESIUM OXIDE 400 MG TABLET PO SCH (07:54)
[2019-12-06] MEDS: OMEGA-3 FATTY ACIDS/FISH OIL 1,000 MG CAPSULE. PO SCH (07:54)
[2019-12-06] MEDS: PANTOPRAZOLE 40 MG TABLET. PO SCH (07:54)
[2019-12-06] MEDS: EZETIMIBE 10 MG TABLET PO SCH (07:55)
[2019-12-06] MEDS: VENLAFAXINE XR 37.5 MG CAP.ER.24H. PO SCH (07:55)
[2019-12-06] MEDS: CHOLECALCIFEROL (VITAMIN D3) 1,000 UNIT TABLET PO SCH (07:55)
[2019-12-06 16:34] VITALS: BP 135/82
[2019-12-06] MEDS: MIRTAZAPINE 15 MG TABLET PO SCH (20:19)
[2019-12-06] MEDS: risperiDONE 0.25 MG TABLET. PO SCH (20:19)
[2019-12-06] MEDS: traZODone 50 MG TABLET. PO SCH (20:20)
[2019-12-06] MEDS: ACETAMINOPHEN 500 MG TABLET PO SCH (20:20)
[2019-12-06] MEDS: LISINOPRIL 10 MG TABLET PO SCH (20:20)
--- NOTE | 2019-12-06 22:14 | PDOC ---
Exam Note: Benjamin Note: Please also refer to the separate dictated note~for this date of service dictated separately.~Patient seen individually. Discussed the patient with Nursing staff reviewed the chart.~Reviewed interim history and current functioning. Reviewed vital signs,~Labs/ Radiology~and current medications noted below. Continue current treatment with the changes noted in the dictated addendum note Assessment: Vital Signs/I&O: Vital Signs Date Time Temp Pulse Resp B/P (MAP) Pulse Ox O2 Delivery O2 Flow Rate FiO2 12/06/19 20:20 104 135/82 12/06/19 20:00 98.5 95 Room Air 12/06/19 16:34 18 I & O 12/05/19 12/05/19 12/06/19 15:00 23:00 07:00 Intake Total 480 ml 120 ml Balance 480 ml 120 ml Current Medications: Meds: Current Medications Medications (Trade) Dose Ordered Sig/Ed Route PRN Reason Start Time Stop Time Status Last Admin Dose Admin Risperidone (RisperDAL) 0.25 mg QHS PO 12/06/19 21:00 12/06/19 20:19 I have reviewed the current psychotropics carefully including drug interactions. Risk benefit ratio favors no change other than as noted in my dictated progress note. Diagnosis: Problems: (1) Dementia, vascular, with delusions (2) Dementia, vascular, with depression (3) Dementia in Alzheimer's disease with delusions (4) Dementia in Alzheimer's disease with depression (5) Psychosis (6) Mild cognitive impairment (7) Anxiety disorder, unspecified (8) Major depressive disorder with psychotic features (9) Psychotic disorder SOHAN KEARNS MD December 06, 2019 22:14
[2019-12-07 06:27] LABS: BASO % 1 % (0-3); EOS # 0.1 x10^3/uL (0.0-0.7); EOS % 3 % (0-3); HEMATOCRIT 44.8 % (36.0-47.0); LYMPH # 1.7 x10^3/uL (1.0-4.8); LYMPH % 32 % (24-48); MEAN CORPUSCULAR HEMOGLOBIN 30 pg (25-35); MEAN CORPUSCULAR HGB CONC 33 g/dL (31-37); MEAN CORPUSCULAR VOLUME 89 fL (79-100); MONO # 0.5 x10^3/uL (0.0-1.1); MONO % 9 % (0-9); NEUT # 2.9 x10^3uL (1.8-7.7); NEUT % 56 % (31-73); PLATELET COUNT 294 x10^3/uL (140-400); RED BLOOD COUNT 5.02 x10^6/uL (3.50-5.40); RED CELL DISTRIBUTION WIDTH 13.9 % (11.5-14.5); WHITE BLOOD COUNT 5.2 x10^3/uL (4.0-11.0)
[2019-12-07 06:28] VITALS: BP 174/88
[2019-12-07 06:40] LABS: ALBUMIN 3.6 g/dL (3.4-5.0); ALBUMIN/GLOBULIN RATIO 1.1 (1.0-1.7); CALCIUM 9.3 mg/dL (8.5-10.1); CREATININE 0.8 mg/dL (0.6-1.0); GFR 68.2; POTASSIUM 4.4 mmol/L (3.5-5.1); TOTAL BILIRUBIN 0.4 mg/dL (0.2-1.0)
[2019-12-07] MEDS: PANTOPRAZOLE 40 MG TABLET. PO SCH (07:48)
[2019-12-07] MEDS: metFORMIN XR 500 MG TAB.ER.24H PO SCH (07:48)
[2019-12-07] MEDS: OMEGA-3 FATTY ACIDS/FISH OIL 1,000 MG CAPSULE. PO SCH (07:48)
[2019-12-07] MEDS: VENLAFAXINE XR 37.5 MG CAP.ER.24H. PO SCH (07:49)
[2019-12-07] MEDS: MULTIVITAMIN I-VITE TABLET. PO SCH (07:49)
[2019-12-07] MEDS: MAGNESIUM OXIDE 400 MG TABLET PO SCH (07:49)
[2019-12-07] MEDS: EZETIMIBE 10 MG TABLET PO SCH (07:50)
[2019-12-07] MEDS: CHOLECALCIFEROL (VITAMIN D3) 1,000 UNIT TABLET PO SCH (07:50)
[2019-12-07 16:05] VITALS: BP 118/70
[2019-12-07] MEDS: ACETAMINOPHEN 500 MG TABLET PO SCH (19:40)
[2019-12-07] MEDS: traZODone 50 MG TABLET. PO SCH (19:41)
[2019-12-07] MEDS: risperiDONE 0.25 MG TABLET. PO SCH (19:41)
[2019-12-07] MEDS: LISINOPRIL 10 MG TABLET PO SCH (19:41)
[2019-12-07] MEDS: MIRTAZAPINE 15 MG TABLET PO SCH (19:41)
--- NOTE | 2019-12-07 22:17 | PDOC ---
Exam Note: Benjamin Note: Please also refer to the separate dictated note~for this date of service dictated separately.~Patient seen individually. Discussed the patient with Nursing staff reviewed the chart.~Reviewed interim history and current functioning. Reviewed vital signs,~Labs/ Radiology~and current medications noted below. Continue current treatment with the changes noted in the dictated addendum note Assessment: Vital Signs/I&O: Vital Signs Date Time Temp Pulse Resp B/P (MAP) Pulse Ox O2 Delivery O2 Flow Rate FiO2 12/07/19 20:28 98.2 95 12/07/19 19:41 108 118/70 12/07/19 16:05 20 Room Air I & O 12/06/19 12/06/19 12/07/19 15:00 23:00 07:00 Intake Total 840 ml 360 ml Balance 840 ml 360 ml Labs: Laboratory Tests Test 12/07/19 06:14 White Blood Count 5.2 x10^3/uL (4.0-11.0) Red Blood Count 5.02 x10^6/uL (3.50-5.40) Hemoglobin 15.0 g/dL (12.0-15.5) Hematocrit 44.8 % (36.0-47.0) Mean Corpuscular Volume 89 fL (79-100) Mean Corpuscular Hemoglobin 30 pg (25-35) Mean Corpuscular Hemoglobin Concent 33 g/dL (31-37) Red Cell Distribution Width 13.9 % (11.5-14.5) Platelet Count 294 x10^3/uL (140-400) Neutrophils (%) (Auto) 56 % (31-73) Lymphocytes (%) (Auto) 32 % (24-48) Monocytes (%) (Auto) 9 % (0-9) Eosinophils (%) (Auto) 3 % (0-3) Basophils (%) (Auto) 1 % (0-3) Neutrophils # (Auto) 2.9 x10^3uL (1.8-7.7) Lymphocytes # (Auto) 1.7 x10^3/uL (1.0-4.8) Monocytes # (Auto) 0.5 x10^3/uL (0.0-1.1) Eosinophils # (Auto) 0.1 x10^3/uL (0.0-0.7) Basophils # (Auto) 0.0 x10^3/uL (0.0-0.2) Sodium Level 141 mmol/L (136-145) Potassium Level 4.4 mmol/L (3.5-5.1) Chloride Level 104 mmol/L (98-107) Carbon Dioxide Level 31 mmol/L (21-32) Anion Gap 6 (6-14) Blood Urea Nitrogen 13 mg/dL (7-20) Creatinine 0.8 mg/dL (0.6-1.0) Estimated GFR (Cockcroft-Gault) 68.2 BUN/Creatinine Ratio 16 (6-20) Glucose Level 149 mg/dL (70-99) H Calcium Level 9.3 mg/dL (8.5-10.1) Total Bilirubin 0.4 mg/dL (0.2-1.0) Aspartate Amino Transferase (AST) 22 U/L (15-37) Alanine Aminotransferase (ALT) 27 U/L (14-59) Alkaline Phosphatase 57 U/L (46-116) Total Protein 7.0 g/dL (6.4-8.2) Albumin 3.6 g/dL (3.4-5.0) Albumin/Globulin Ratio 1.1 (1.0-1.7) Current Medications: I have reviewed the current psychotropics carefully including drug interactions. Risk benefit ratio favors no change other than as noted in my dictated progress note. Diagnosis: Problems: (1) Mild cognitive impairment (2) Anxiety disorder, unspecified (3) Major depressive disorder with psychotic features (4) Psychotic disorder (5) Dementia, vascular, with depression (6) Dementia, vascular, with delusions (7) Dementia in Alzheimer's disease with depression (8) Dementia in Alzheimer's disease with delusions SOHAN KEARNS MD December 07, 2019 22:17
[2019-12-08 05:46] VITALS: BP 165/90
[2019-12-08] MEDS: metFORMIN XR 500 MG TAB.ER.24H PO SCH (08:06)
[2019-12-08] MEDS: PANTOPRAZOLE 40 MG TABLET. PO SCH (08:06)
[2019-12-08] MEDS: VENLAFAXINE XR 37.5 MG CAP.ER.24H. PO SCH (08:06)
[2019-12-08] MEDS: MULTIVITAMIN I-VITE TABLET. PO SCH (08:06)
[2019-12-08] MEDS: OMEGA-3 FATTY ACIDS/FISH OIL 1,000 MG CAPSULE. PO SCH (08:06)
[2019-12-08] MEDS: MAGNESIUM OXIDE 400 MG TABLET PO SCH (08:06)
[2019-12-08] MEDS: CHOLECALCIFEROL (VITAMIN D3) 1,000 UNIT TABLET PO SCH (08:07)
[2019-12-08] MEDS: EZETIMIBE 10 MG TABLET PO SCH (08:07)
[2019-12-08 16:10] VITALS: BP 135/75
--- NOTE | 2019-12-08 20:17 | PN ---
DATE: 12/06/2019 PSYCHIATRIC PROGRESS NOTE This late entry 12/06/2019 covers elements not covered in my initial note. SUBJECTIVE: I met with the patient evening of 12/06/2019 on telehealth rounds. Per LONI Bliss, the patient slept 6-1/2 hours previous night. She will be out of room on 12/07/2019. REVIEW OF SYSTEMS: Hard of hearing. No CV, , pulmonary, eye system symptoms on review. MENTAL STATUS EXAM: Reasonably oriented. Speech is coherent, abstraction fair, computation impaired, language function intact. Mood and affect remain somewhat anxious, labile. She states the auditory and visual hallucinations are better, but she is still having them intermittently more so in the evening. Processed this with her, labs reviewed. IMPRESSION: Psychotic disorder, unspecified; major depressive disorder with psychotic features, mild cognitive impairment and psychosis may be connected with this as well. LABORATORY DATA: Reviewed. PLAN: Continue current psychotropics. We will go ahead and increase the Risperdal to 0.25 mg p.o. at bedtime. Make further adjustments as clinically indicated. Zyprexa was reduced. Maintain Remeron along with Zyprexa p.r.n., trazodone p.r.n. for insomnia. SOHAN KEARNS MD DR: MATT/heri JOB#: [id number] / [id number]
--- NOTE | 2019-12-08 20:26 | PN ---
DATE: 12/07/2019 PSYCHIATRIC PROGRESS NOTE This late entry 12/07/2019 covers elements not covered in my initial note. SUBJECTIVE: Per LONI Bliss, the patient slept 6-3/4 hours previous night. Previous night, she was tearful, somewhat psychotic, believes she was dying and the family would be heard voices were telling at that. She has done little better during the day until after breakfast and then thereafter, she felt people were going around with guns and there was a ladder the people were climbing up of going to hurt her family. Received Zyprexa at lunchtime and then did better, slept 6-3/4 hours previous night. REVIEW OF SYSTEMS: Hard of hearing. No CV, , pulmonary, eye system symptoms on review. MENTAL STATUS EXAMINATION: The patient is reasonably oriented. Speech has some latency, coherent. Abstraction fair, computation impaired, language function intact, attention span short, less psychotic overall. LABORATORY DATA: Reviewed. IMPRESSION: Unchanged from initial note. PLAN: No change from initial note. SOHAN KEARNS MD DR: MATT/heri JOB#: [id number] / [id number]
[2019-12-08] MEDS: ACETAMINOPHEN 500 MG TABLET PO SCH (21:04)
[2019-12-08] MEDS: traZODone 50 MG TABLET. PO SCH (21:04)
[2019-12-08] MEDS: LISINOPRIL 10 MG TABLET PO SCH (21:04)
[2019-12-08] MEDS: risperiDONE 0.25 MG TABLET. PO SCH (21:04)
[2019-12-08] MEDS: MIRTAZAPINE 15 MG TABLET PO SCH (21:05)
--- NOTE | 2019-12-08 22:26 | PDOC ---
Exam Note: Benjamin Note: Please also refer to the separate dictated note~for this date of service dictated separately.~Patient seen individually. Discussed the patient with Nursing staff reviewed the chart.~Reviewed interim history and current functioning. Reviewed vital signs,~Labs/ Radiology~and current medications noted below. Continue current treatment with the changes noted in the dictated addendum note Assessment: Vital Signs/I&O: Vital Signs Date Time Temp Pulse Resp B/P (MAP) Pulse Ox O2 Delivery O2 Flow Rate FiO2 12/08/19 21:33 98.0 91 12/08/19 21:04 64 135/75 12/08/19 16:10 20 Room Air I & O 12/07/19 12/07/19 12/08/19 15:00 23:00 07:00 Intake Total 600 ml 360 ml Balance 600 ml 360 ml Current Medications: I have reviewed the current psychotropics carefully including drug interactions. Risk benefit ratio favors no change other than as noted in my dictated progress note. Diagnosis: Problems: (1) Psychosis (2) Mild cognitive impairment (3) Anxiety disorder, unspecified (4) Major depressive disorder with psychotic features (5) Psychotic disorder (6) Dementia, vascular, with depression (7) Dementia, vascular, with delusions (8) Dementia in Alzheimer's disease with depression (9) Dementia in Alzheimer's disease with delusions SOHAN KEARNS MD December 08, 2019 22:25
[2019-12-09 05:54] VITALS: BP 100/53
[2019-12-09 06:41] LABS: BASO # 0.1 x10^3/uL (0.0-0.2); BASO % 1 % (0-3); EOS # 0.1 x10^3/uL (0.0-0.7); EOS % 3 % (0-3); HEMATOCRIT 42.4 % (36.0-47.0); HEMOGLOBIN 14.2 g/dL (12.0-15.5); LYMPH % 21 % (24-48); MEAN CORPUSCULAR HEMOGLOBIN 30 pg (25-35); MEAN CORPUSCULAR HGB CONC 34 g/dL (31-37); MEAN CORPUSCULAR VOLUME 89 fL (79-100); MONO # 0.5 x10^3/uL (0.0-1.1); MONO % 11 % (0-9); NEUT % 64 % (31-73); PLATELET COUNT 264 x10^3/uL (140-400); RED BLOOD COUNT 4.75 x10^6/uL (3.50-5.40); RED CELL DISTRIBUTION WIDTH 13.9 % (11.5-14.5); WHITE BLOOD COUNT 4.7 x10^3/uL (4.0-11.0)
[2019-12-09 06:56] LABS: ALBUMIN 3.4 g/dL (3.4-5.0); ALBUMIN/GLOBULIN RATIO 1.1 (1.0-1.7); CALCIUM 9.3 mg/dL (8.5-10.1); CREATININE 0.7 mg/dL (0.6-1.0); GFR 79.5; POTASSIUM 3.7 mmol/L (3.5-5.1); TOTAL BILIRUBIN 0.4 mg/dL (0.2-1.0); TOTAL PROTEIN 6.6 g/dL (6.4-8.2)
--- NOTE | 2019-12-09 07:14 | EKG ---
[address] [address] Test Date: 2019-12-08 Test Time: 07:53:52 Pat Name: JORDAN PETTY Department: Room: [address] [place] [address] Gender: F Nurses Medical Assistants Phlebotomists: : 1935 Requested By: JANA STRATTON Order Number: [id number] Reading MD: Sidney Lebron MD Measurements Intervals [place] Rate: 101 P: 84 NE: 134 QRS: -52 QRSD: 118 T: 49 QT: 366 QTc: 475 Interpretive Statements SINUS TACHYCARDIA RBBB LAFB NON-SPECIFIC ST/T CHANGES Electronically Signed On 12-09-2019 9:26:46 CDT by Sidney Lebron MD
[2019-12-09] MEDS: VENLAFAXINE XR 37.5 MG CAP.ER.24H. PO SCH (08:04)
[2019-12-09] MEDS: OMEGA-3 FATTY ACIDS/FISH OIL 1,000 MG CAPSULE. PO SCH (08:04)
[2019-12-09] MEDS: MULTIVITAMIN I-VITE TABLET. PO SCH (08:05)
[2019-12-09] MEDS: CHOLECALCIFEROL (VITAMIN D3) 1,000 UNIT TABLET PO SCH (08:05)
[2019-12-09] MEDS: EZETIMIBE 10 MG TABLET PO SCH (08:05)
[2019-12-09] MEDS: metFORMIN XR 500 MG TAB.ER.24H PO SCH (08:05)
[2019-12-09] MEDS: PANTOPRAZOLE 40 MG TABLET. PO SCH (08:05)
[2019-12-09] MEDS: MAGNESIUM OXIDE 400 MG TABLET PO SCH (08:05)
[2019-12-09 16:24] VITALS: BP 128/81
[2019-12-09] MEDS: traZODone 50 MG TABLET. PO SCH (20:20)
[2019-12-09] MEDS: LISINOPRIL 10 MG TABLET PO SCH (20:21)
[2019-12-09] MEDS: ACETAMINOPHEN 500 MG TABLET PO SCH (20:21)
[2019-12-09] MEDS: MIRTAZAPINE 15 MG TABLET PO SCH (20:21)
[2019-12-09] MEDS: risperiDONE 0.25 MG TABLET. PO SCH (20:21)
--- NOTE | 2019-12-09 22:15 | PDOC ---
Exam Note: Benjamin Note: Please also refer to the separate dictated note~for this date of service dictated separately.~Patient seen individually. Discussed the patient with Nursing staff reviewed the chart.~Reviewed interim history and current functioning. Reviewed vital signs,~Labs/ Radiology~and current medications noted below. Continue current treatment with the changes noted in the dictated addendum note Assessment: Vital Signs/I&O: Vital Signs Date Time Temp Pulse Resp B/P (MAP) Pulse Ox O2 Delivery O2 Flow Rate FiO2 12/09/19 20:21 110 128/81 12/09/19 16:24 97.4 16 97 12/08/19 16:10 Room Air I & O 12/08/19 12/08/19 12/09/19 15:00 23:00 07:00 Intake Total 480 ml 240 ml Balance 480 ml 240 ml Labs: Laboratory Tests Test 12/09/19 06:24 White Blood Count 4.7 x10^3/uL (4.0-11.0) Red Blood Count 4.75 x10^6/uL (3.50-5.40) Hemoglobin 14.2 g/dL (12.0-15.5) Hematocrit 42.4 % (36.0-47.0) Mean Corpuscular Volume 89 fL (79-100) Mean Corpuscular Hemoglobin 30 pg (25-35) Mean Corpuscular Hemoglobin Concent 34 g/dL (31-37) Red Cell Distribution Width 13.9 % (11.5-14.5) Platelet Count 264 x10^3/uL (140-400) Neutrophils (%) (Auto) 64 % (31-73) Lymphocytes (%) (Auto) 21 % (24-48) L Monocytes (%) (Auto) 11 % (0-9) H Eosinophils (%) (Auto) 3 % (0-3) Basophils (%) (Auto) 1 % (0-3) Neutrophils # (Auto) 3.0 x10^3uL (1.8-7.7) Lymphocytes # (Auto) 1.0 x10^3/uL (1.0-4.8) Monocytes # (Auto) 0.5 x10^3/uL (0.0-1.1) Eosinophils # (Auto) 0.1 x10^3/uL (0.0-0.7) Basophils # (Auto) 0.1 x10^3/uL (0.0-0.2) Sodium Level 141 mmol/L (136-145) Potassium Level 3.7 mmol/L (3.5-5.1) Chloride Level 105 mmol/L (98-107) Carbon Dioxide Level 29 mmol/L (21-32) Anion Gap 7 (6-14) Blood Urea Nitrogen 14 mg/dL (7-20) Creatinine 0.7 mg/dL (0.6-1.0) Estimated GFR (Cockcroft-Gault) 79.5 BUN/Creatinine Ratio 20 (6-20) Glucose Level 130 mg/dL (70-99) H Calcium Level 9.3 mg/dL (8.5-10.1) Total Bilirubin 0.4 mg/dL (0.2-1.0) Aspartate Amino Transferase (AST) 19 U/L (15-37) Alanine Aminotransferase (ALT) 26 U/L (14-59) Alkaline Phosphatase 53 U/L (46-116) Total Protein 6.6 g/dL (6.4-8.2) Albumin 3.4 g/dL (3.4-5.0) Albumin/Globulin Ratio 1.1 (1.0-1.7) Current Medications: I have reviewed the current psychotropics carefully including drug interactions. Risk benefit ratio favors no change other than as noted in my dictated progress note. Diagnosis: Problems: (1) Psychosis (2) Mild cognitive impairment (3) Anxiety disorder, unspecified (4) Major depressive disorder with psychotic features (5) Psychotic disorder (6) Dementia, vascular, with depression (7) Dementia, vascular, with delusions (8) Dementia in Alzheimer's disease with depression (9) Dementia in Alzheimer's disease with delusions SOHAN KEARNS MD December 09, 2019 22:15
[2019-12-09] MEDS: diphenhydrAMINE HCL 25 MG CAPSULE PO PRN (23:49)
[2019-12-09] MEDS: ACETAMINOPHEN 500 MG TABLET PO PRN (23:49)
[2019-12-10 06:20] VITALS: BP 160/93
[2019-12-10] MEDS: CHOLECALCIFEROL (VITAMIN D3) 1,000 UNIT TABLET PO SCH (09:00)
[2019-12-10] MEDS: EZETIMIBE 10 MG TABLET PO SCH (09:00)
[2019-12-10] MEDS: PANTOPRAZOLE 40 MG TABLET. PO SCH (09:46)
[2019-12-10] MEDS: VENLAFAXINE XR 37.5 MG CAP.ER.24H. PO SCH (09:46)
[2019-12-10] MEDS: MULTIVITAMIN I-VITE TABLET. PO SCH (09:47)
[2019-12-10] MEDS: MAGNESIUM OXIDE 400 MG TABLET PO SCH (09:47)
[2019-12-10] MEDS: OMEGA-3 FATTY ACIDS/FISH OIL 1,000 MG CAPSULE. PO SCH (09:48)
[2019-12-10] MEDS: metFORMIN XR 500 MG TAB.ER.24H PO SCH (09:48)
[2019-12-10 15:37] VITALS: BP 132/83
[2019-12-10] MEDS: ACETAMINOPHEN 500 MG TABLET PO SCH (19:53)
[2019-12-10] MEDS: LISINOPRIL 10 MG TABLET PO SCH (19:53)
[2019-12-10] MEDS: risperiDONE 0.25 MG TABLET. PO SCH (19:53)
[2019-12-10] MEDS: traZODone 50 MG TABLET. PO SCH (19:53)
[2019-12-10] MEDS: MIRTAZAPINE 15 MG TABLET PO SCH (19:55)
[2019-12-10] MEDS: ACETAMINOPHEN 500 MG TABLET PO PRN (21:33)
[2019-12-10] MEDS: diphenhydrAMINE HCL 25 MG CAPSULE PO PRN (21:33)
--- NOTE | 2019-12-10 22:06 | PN ---
DATE: 12/08/2019 This late entry 12/07 covers elements not covered in my initial note. SUBJECTIVE: I met the patient on telehealth rounds in the evening. The patient slept 7-1/4 hours previous night per LONI Bliss. She has had a difficult day, worse in the evening. At shift change, she barricaded herself in her room with a heavy chair lunging at staff when they tried to open her room. She is paranoid, suspicious, believes staff are trying to hurt her. Nothing they would say would change this. REVIEW OF SYSTEMS: No CV, , pulmonary, eye system symptoms on review, quite hard of hearing. MENTAL STATUS EXAM: Reasonably oriented. Speech is coherent, has some latency. Abstraction fair, computation impaired, language function intact, attention span short. Mood and affect remains labile. LABORATORY DATA: Reviewed. IMPRESSION: Psychotic disorder, unspecified versus major depressive disorder with psychotic features; major neurocognitive disorder, early Alzheimer, vascular with delusions. Rest unchanged. PLAN: No change from initial note. Effexor was reduced to 150 mg a day; Remeron continue 7.5 mg at bedtime; Zyprexa p.r.n.; Risperdal has been increased to 0.25 mg at bedtime; trazodone 25 mg at bedtime, may repeat x 1. We need to increase Risperdal further. SOHAN KEARNS MD DR: MATT/heri JOB#: [id number] / [id number]
--- NOTE | 2019-12-10 22:17 | PDOC ---
Exam Note: Benjamin Note: Please also refer to the separate dictated note~for this date of service dictated separately.~Patient seen individually. Discussed the patient with Nursing staff reviewed the chart.~Reviewed interim history and current functioning. Reviewed vital signs,~Labs/ Radiology~and current medications noted below. Continue current treatment with the changes noted in the dictated addendum note Assessment: Vital Signs/I&O: Vital Signs Date Time Temp Pulse Resp B/P (MAP) Pulse Ox O2 Delivery O2 Flow Rate FiO2 12/10/19 19:53 109 132/83 12/10/19 18:48 98.5 12/10/19 15:37 16 93 12/10/19 06:20 Room Air I & O 12/09/19 12/09/19 12/10/19 15:00 23:00 07:00 Intake Total 720 ml 480 ml 120 ml Balance 720 ml 480 ml 120 ml Current Medications: I have reviewed the current psychotropics carefully including drug interactions. Risk benefit ratio favors no change other than as noted in my dictated progress note. Diagnosis: Problems: (1) Psychosis (2) Mild cognitive impairment (3) Anxiety disorder, unspecified (4) Major depressive disorder with psychotic features (5) Psychotic disorder (6) Dementia, vascular, with depression (7) Dementia, vascular, with delusions (8) Dementia in Alzheimer's disease with depression (9) Dementia in Alzheimer's disease with delusions SOHAN KEARNS MD December 10, 2019 22:17
--- NOTE | 2019-12-10 22:32 | PN ---
DATE: 12/09/2019 PSYCHIATRIC PROGRESS NOTE This late entry 12/09/2019 covers elements not covered in my initial note. Per LONI Hunter, the patient slept 6-1/4 hours previous night. SUBJECTIVE: She is quite psychotic, previous evenings. Believes family will be monitored, including her grandchildren, very distressed about this. I addressed this with her. REVIEW OF SYSTEMS: She is hard of hearing. No CV, , pulmonary, eye system symptoms on review. MENTAL STATUS EXAM: Oriented reasonably. Speech has some latency, coherent. Abstraction fair, computation impaired, language function intact. Mood and affect withdrawn. LABORATORY DATA: Reviewed. IMPRESSION: Unchanged from initial note. PLAN: No change from initial note. We may need to increase Risperdal further. MAN Jennifer KEARNS MD DR: MATT/heri JOB#: [id number] / [id number]
[2019-12-11 06:45] VITALS: BP 125/71
[2019-12-11 06:54] LABS: ALBUMIN 3.2 g/dL (3.4-5.0); ALBUMIN/GLOBULIN RATIO 1.1 (1.0-1.7); CREATININE 0.8 mg/dL (0.6-1.0); GFR 68.2; POTASSIUM 3.9 mmol/L (3.5-5.1); TOTAL BILIRUBIN 0.3 mg/dL (0.2-1.0); TOTAL PROTEIN 6.2 g/dL (6.4-8.2)
[2019-12-11 06:59] LABS: BASO # 0.1 x10^3/uL (0.0-0.2); BASO % 2 % (0-3); EOS # 0.2 x10^3/uL (0.0-0.7); EOS % 4 % (0-3); HEMOGLOBIN 13.7 g/dL (12.0-15.5); LYMPH # 1.1 x10^3/uL (1.0-4.8); LYMPH % 25 % (24-48); MEAN CORPUSCULAR HEMOGLOBIN 30 pg (25-35); MEAN CORPUSCULAR HGB CONC 34 g/dL (31-37); MEAN CORPUSCULAR VOLUME 89 fL (79-100); MONO # 0.5 x10^3/uL (0.0-1.1); MONO % 11 % (0-9); NEUT # 2.6 x10^3uL (1.8-7.7); NEUT % 59 % (31-73); PLATELET COUNT 272 x10^3/uL (140-400); RED BLOOD COUNT 4.61 x10^6/uL (3.50-5.40); RED CELL DISTRIBUTION WIDTH 14.1 % (11.5-14.5); WHITE BLOOD COUNT 4.3 x10^3/uL (4.0-11.0)
--- NOTE | 2019-12-11 09:27 | PDOC ---
Exam Note: Benjamin Note: This note is a late entry for 12/10/2019 covers elements not covered in my initial note. SUBJECTIVE: The patient was seen on Telehealth services in the evening of 12/10/2019. Nursing report was with Dinorah IVEY. Discussed the patient with nursing staff reviewed the chart. She slept 7-3/4 hours previous night. The patient did better previous night but said there was a voice telling her to cut her finger and she is well oriented. REVIEW OF SYSTEMS: She is hard of hearing. No CV, GI/, Pulmonary, Eye system symptoms on review. MENTAL STATUS EXAM: Reasonably oriented. Speech is coherent, has some latency. Abstraction is fair. Computation is impaired. Language function is intact. Mood and affect is still somewhat depressed and anxious, less psychotic. LABORATORY DATA: Reviewed. IMPRESSSION: Unchanged from initial note. PLAN: No change from initial note. Assessment: Vital Signs/I&O: Vital Signs Date Time Temp Pulse Resp B/P (MAP) Pulse Ox O2 Delivery O2 Flow Rate FiO2 12/11/19 08:00 98.8 99 12/11/19 06:45 102 18 125/71 (89) 12/10/19 06:20 Room Air I & O 12/10/19 12/10/19 12/11/19 14:59 22:59 06:59 Intake Total 720 ml 480 ml Balance 720 ml 480 ml Labs: Laboratory Tests Test 12/11/19 06:26 White Blood Count 4.3 x10^3/uL (4.0-11.0) Red Blood Count 4.61 x10^6/uL (3.50-5.40) Hemoglobin 13.7 g/dL (12.0-15.5) Hematocrit 41.0 % (36.0-47.0) Mean Corpuscular Volume 89 fL (79-100) Mean Corpuscular Hemoglobin 30 pg (25-35) Mean Corpuscular Hemoglobin Concent 34 g/dL (31-37) Red Cell Distribution Width 14.1 % (11.5-14.5) Platelet Count 272 x10^3/uL (140-400) Neutrophils (%) (Auto) 59 % (31-73) Lymphocytes (%) (Auto) 25 % (24-48) Monocytes (%) (Auto) 11 % (0-9) H Eosinophils (%) (Auto) 4 % (0-3) H Basophils (%) (Auto) 2 % (0-3) Neutrophils # (Auto) 2.6 x10^3uL (1.8-7.7) Lymphocytes # (Auto) 1.1 x10^3/uL (1.0-4.8) Monocytes # (Auto) 0.5 x10^3/uL (0.0-1.1) Eosinophils # (Auto) 0.2 x10^3/uL (0.0-0.7) Basophils # (Auto) 0.1 x10^3/uL (0.0-0.2) Sodium Level 141 mmol/L (136-145) Potassium Level 3.9 mmol/L (3.5-5.1) Chloride Level 104 mmol/L (98-107) Carbon Dioxide Level 31 mmol/L (21-32) Anion Gap 6 (6-14) Blood Urea Nitrogen 15 mg/dL (7-20) Creatinine 0.8 mg/dL (0.6-1.0) Estimated GFR (Cockcroft-Gault) 68.2 BUN/Creatinine Ratio 19 (6-20) Glucose Level 104 mg/dL (70-99) H Calcium Level 9.0 mg/dL (8.5-10.1) Total Bilirubin 0.3 mg/dL (0.2-1.0) Aspartate Amino Transferase (AST) 18 U/L (15-37) Alanine Aminotransferase (ALT) 22 U/L (14-59) Alkaline Phosphatase 49 U/L (46-116) Total Protein 6.2 g/dL (6.4-8.2) L Albumin 3.2 g/dL (3.4-5.0) L Albumin/Globulin Ratio 1.1 (1.0-1.7) Current Medications: I have reviewed the current psychotropics carefully including drug interactions. Risk benefit ratio favors no change other than as noted in my dictated progress note. Diagnosis: Problems: (1) Psychosis (2) Mild cognitive impairment (3) Anxiety disorder, unspecified (4) Major depressive disorder with psychotic features (5) Psychotic disorder (6) Dementia, vascular, with depression (7) Dementia, vascular, with delusions (8) Dementia in Alzheimer's disease with depression (9) Dementia in Alzheimer's disease with delusions SOHAN KEARNS MD December 11, 2019 09:27
[2019-12-11] MEDS: PANTOPRAZOLE 40 MG TABLET. PO SCH (09:30)
[2019-12-11] MEDS: VENLAFAXINE XR 37.5 MG CAP.ER.24H. PO SCH (09:30)
[2019-12-11] MEDS: MULTIVITAMIN I-VITE TABLET. PO SCH (09:30)
[2019-12-11] MEDS: CHOLECALCIFEROL (VITAMIN D3) 1,000 UNIT TABLET PO SCH (09:30)
[2019-12-11] MEDS: MAGNESIUM OXIDE 400 MG TABLET PO SCH (09:31)
[2019-12-11] MEDS: OMEGA-3 FATTY ACIDS/FISH OIL 1,000 MG CAPSULE. PO SCH (09:31)
[2019-12-11] MEDS: metFORMIN XR 500 MG TAB.ER.24H PO SCH (09:31)
[2019-12-11] MEDS: EZETIMIBE 10 MG TABLET PO SCH (09:32)
[2019-12-11 16:01] VITALS: BP 149/88
[2019-12-11] MEDS: risperiDONE 0.25 MG TABLET. PO SCH (19:39)
[2019-12-11] MEDS: MIRTAZAPINE 15 MG TABLET PO SCH (19:40)
[2019-12-11] MEDS: traZODone 50 MG TABLET. PO SCH (19:40)
[2019-12-11] MEDS: ACETAMINOPHEN 500 MG TABLET PO SCH (19:40)
[2019-12-11] MEDS: LISINOPRIL 10 MG TABLET PO SCH (19:41)
--- NOTE | 2019-12-11 22:09 | PDOC ---
Exam Note: Benjamin Note: Please also refer to the separate dictated note~for this date of service dictated separately.~Patient seen individually. Discussed the patient with Nursing staff reviewed the chart.~Reviewed interim history and current functioning. Reviewed vital signs,~Labs/ Radiology~and current medications noted below. Continue current treatment with the changes noted in the dictated addendum note Assessment: Vital Signs/I&O: Vital Signs Date Time Temp Pulse Resp B/P (MAP) Pulse Ox O2 Delivery O2 Flow Rate FiO2 12/11/19 20:40 98.4 97 12/11/19 19:41 100 149/88 12/11/19 16:01 16 12/10/19 06:20 Room Air I & O 12/10/19 12/10/19 12/11/19 15:00 23:00 07:00 Intake Total 720 ml 480 ml Balance 720 ml 480 ml Labs: Laboratory Tests Test 12/11/19 06:26 White Blood Count 4.3 x10^3/uL (4.0-11.0) Red Blood Count 4.61 x10^6/uL (3.50-5.40) Hemoglobin 13.7 g/dL (12.0-15.5) Hematocrit 41.0 % (36.0-47.0) Mean Corpuscular Volume 89 fL (79-100) Mean Corpuscular Hemoglobin 30 pg (25-35) Mean Corpuscular Hemoglobin Concent 34 g/dL (31-37) Red Cell Distribution Width 14.1 % (11.5-14.5) Platelet Count 272 x10^3/uL (140-400) Neutrophils (%) (Auto) 59 % (31-73) Lymphocytes (%) (Auto) 25 % (24-48) Monocytes (%) (Auto) 11 % (0-9) H Eosinophils (%) (Auto) 4 % (0-3) H Basophils (%) (Auto) 2 % (0-3) Neutrophils # (Auto) 2.6 x10^3uL (1.8-7.7) Lymphocytes # (Auto) 1.1 x10^3/uL (1.0-4.8) Monocytes # (Auto) 0.5 x10^3/uL (0.0-1.1) Eosinophils # (Auto) 0.2 x10^3/uL (0.0-0.7) Basophils # (Auto) 0.1 x10^3/uL (0.0-0.2) Sodium Level 141 mmol/L (136-145) Potassium Level 3.9 mmol/L (3.5-5.1) Chloride Level 104 mmol/L (98-107) Carbon Dioxide Level 31 mmol/L (21-32) Anion Gap 6 (6-14) Blood Urea Nitrogen 15 mg/dL (7-20) Creatinine 0.8 mg/dL (0.6-1.0) Estimated GFR (Cockcroft-Gault) 68.2 BUN/Creatinine Ratio 19 (6-20) Glucose Level 104 mg/dL (70-99) H Calcium Level 9.0 mg/dL (8.5-10.1) Total Bilirubin 0.3 mg/dL (0.2-1.0) Aspartate Amino Transferase (AST) 18 U/L (15-37) Alanine Aminotransferase (ALT) 22 U/L (14-59) Alkaline Phosphatase 49 U/L (46-116) Total Protein 6.2 g/dL (6.4-8.2) L Albumin 3.2 g/dL (3.4-5.0) L Albumin/Globulin Ratio 1.1 (1.0-1.7) Current Medications: Meds: Current Medications Medications (Trade) Dose Ordered Sig/Ed Route PRN Reason Start Time Stop Time Status Last Admin Dose Admin Risperidone (RisperDAL) 0.375 mg QHS PO 12/11/19 21:00 12/11/19 19:39 I have reviewed the current psychotropics carefully including drug interactions. Risk benefit ratio favors no change other than as noted in my dictated progress note. Diagnosis: Problems: (1) Psychosis (2) Mild cognitive impairment (3) Anxiety disorder, unspecified (4) Major depressive disorder with psychotic features (5) Psychotic disorder (6) Dementia, vascular, with depression (7) Dementia, vascular, with delusions (8) Dementia in Alzheimer's disease with depression (9) Dementia in Alzheimer's disease with delusions SOHAN KEARNS MD December 11, 2019 22:08
--- NOTE | 2019-12-11 22:45 | PN ---
DATE: 12/11/2019 PSYCHIATRIC PROGRESS NOTE This note covers elements not covered in my initial note 12/11/2019. SUBJECTIVE: I met with the patient in the evening of 12/11/2019 at length in her room. She did well in the morning until after lunch. Then, she was having active auditory hallucinations and believed the voices were trying to kill her. She has been interactive with other patients as well. REVIEW OF SYSTEMS: Hard of hearing. No CV, , pulmonary, eye system symptoms on review. MENTAL STATUS EXAM: Reasonably oriented. Speech is coherent, abstraction fair, computation impaired, language function intact, attention span short. Mood and affect somewhat withdrawn. LABORATORY DATA: Reviewed. IMPRESSION: Unchanged from initial note. PLAN: No change from initial note, but we will increase the Risperdal from 0.25 mg at bedtime to 0.375 mg at bedtime. Rest unchanged from now. MAN Jennifer KEARNS MD DR: MATT/heri JOB#: [id number] / [id number]
[2019-12-12 06:17] VITALS: BP 151/88
[2019-12-12] MEDS: VENLAFAXINE XR 37.5 MG CAP.ER.24H. PO SCH (08:52)
[2019-12-12] MEDS: PANTOPRAZOLE 40 MG TABLET. PO SCH (08:52)
[2019-12-12] MEDS: MAGNESIUM OXIDE 400 MG TABLET PO SCH (08:53)
[2019-12-12] MEDS: metFORMIN XR 500 MG TAB.ER.24H PO SCH (08:53)
[2019-12-12] MEDS: MULTIVITAMIN I-VITE TABLET. PO SCH (08:54)
[2019-12-12] MEDS: OMEGA-3 FATTY ACIDS/FISH OIL 1,000 MG CAPSULE. PO SCH (08:54)
[2019-12-12] MEDS: EZETIMIBE 10 MG TABLET PO SCH (08:57)
[2019-12-12] MEDS: CHOLECALCIFEROL (VITAMIN D3) 1,000 UNIT TABLET PO SCH (08:57)
--- NOTE | 2019-12-12 11:19 | TX PLAN ---
Interdisciplinary Tx Plan Admission Information December 03, 2019 at 13:37 Legal Status (on Admission): Voluntary DPOA/Guardian Name: Meka Humphrey Contact Verified Code Status: DNR Allergies: Coded Allergies: atorvastatin (Verified Allergy, Unknown, 12/03/19) colesevelam (Verified Allergy, Unknown, 12/03/19) donepezil (Verified Allergy, Unknown, 12/03/19) pravastatin (Verified Allergy, Unknown, 12/03/19) rosuvastatin (Verified Allergy, Unknown, 12/03/19) Diagnoses Primary Diagnosis: Psychotic D/O unspecified Reasons for Admission: Delusions, Sig. Change Sleep, Anxiety/Panic, Confusion/Disoriented Problem in Patient's Words: She has significantly declined over the last 2 months and cannot bring herself out of it. Additional Admission Comments: According to the intake, pt has increased anxiety, insomnia, auditory hallucinations, thinks the neighbors can hear her and are watching her via camera; thinks they installed electronics in her brain to track her. Pt is scared to live at home Problems Active Problems: Anxiety Auditory hallucinations Poor sleep Paranoia Inactive Problems: Medication compliant Pt Strengths/Limitations Ability for [place]: Fair Cognitive Functioning/Ability: Fair Communication Skills/Ability: Fair Financial Resources: Poor Insight/Judgement: Fair Intellectual Ability: Fair Physical Health: Fair Social Skills: Fair Stability in Family: Fair Stability in School/Work: Fair Verbal Skills: Fair Discharge Criteria Discharge Criteria: Able meet basic life need, Able to meet health needs, Adequate arrangements @DC, Verbal commit aftercare, Adequate self-care, Improved behavior, Improved mood/thought Preliminary Discharge Plan Preliminary DC Plan: Placement Needed Special Precautions Fall Risk: Low Initial D/C Plan Pt does not wish to return to her [facility]; placement may be needed. Identified Discharge Needs: Pt will need a different living situation. Home with services versus an JF Currently Utilized Resources Currently Utilized Resources/P: Primary Care Physician Neurologist Referrals Community Resources: Mental Health services Identified Problems/Hx/Goals Objectives/Short-Term Goals Short Term Goals: Dec. Hallucination/Delus, Medication Stabilization, No Suicidal/Romulo. ideation, Promote Coping Skill Short Term Goals in Patient's: I want to be at peace and not have to live like this all the time. Interventions/Frequency Staff Interventions/Frequency&: Psychiatrist to see pt at least 3x per week. Social Work to see pt at least 2x per week. Nursing to assess and complete 15 minute checks daily. Encourage group and activity participation OR 1:1 time based on activity therapy assessment/goals. 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 Education: Pt graduated high school in the 12th grade. Community Follow-up Needs to continue to follow-up with PCP May need appointment with Estephanie Ross for continued mental health services. Community Provider/Family Inpu: She has not been okay in the last 2 months. She needs to be evaluated and next steps need to be decided. Treatment Plan Explained Patient/Geophysical Prospector had this treatment plan explained to him/her as indicated by the signature below and has been given the opportunity to ask questions and make suggestions: Date: Patient/Geophysical Prospector Signature: Status Update Update Pt dtr, Meka, participated in tx team via telephone. According to reports, pt is eating 75% of meals and sleeping on average 6.5 hours of sleep. Pt can be demanding at times when wanting to make phone calls; however, otherwise, mostly compliant. Pt is able to report her auditory hallucinations and as of the last 24-48 hours reports continuing to hear music and that the voices in her head know her name and want to smash her bones. Pt is attending group activities and is interactive with all staff and peers. Pt did have her Risperdal increased to 0.25mg at HS and will continue to slowly increase to aid in pt hallucinations as needed. Pt dtr does have placement for pt at [facility], in which SILVIA was in contact with Ai and will send updated records to Ai to review. As it stands, pt dtr reports that the opening would not be until December 19 and SILVIA will work with all parties on this discharge plan. MALINI SCHULTZ December 12, 2019 11:19
[2019-12-12 15:51] VITALS: BP 150/88
[2019-12-12] MEDS: traZODone 50 MG TABLET. PO SCH (20:28)
[2019-12-12] MEDS: MIRTAZAPINE 15 MG TABLET PO SCH (20:29)
[2019-12-12] MEDS: risperiDONE 0.25 MG TABLET. PO SCH (20:29)
[2019-12-12] MEDS: LISINOPRIL 10 MG TABLET PO SCH (20:29)
[2019-12-12] MEDS: ACETAMINOPHEN 500 MG TABLET PO SCH (20:29)
--- NOTE | 2019-12-12 22:07 | PDOC ---
Exam Note: Benjamin Note: Please also refer to the separate dictated note~for this date of service dictated separately.~Patient seen individually. Discussed the patient with Nursing staff reviewed the chart.~Reviewed interim history and current functioning. Reviewed vital signs,~Labs/ Radiology~and current medications noted below. Continue current treatment with the changes noted in the dictated addendum note Assessment: Vital Signs/I&O: Vital Signs Date Time Temp Pulse Resp B/P (MAP) Pulse Ox O2 Delivery O2 Flow Rate FiO2 12/12/19 20:29 111 150/88 12/12/19 20:26 97.9 97 12/12/19 15:51 20 12/10/19 06:20 Room Air I & O 12/11/19 12/11/19 12/12/19 15:00 23:00 07:00 Intake Total 960 ml 600 ml Balance 960 ml 600 ml Current Medications: I have reviewed the current psychotropics carefully including drug interactions. Risk benefit ratio favors no change other than as noted in my dictated progress note. Diagnosis: Problems: (1) Psychosis (2) Mild cognitive impairment (3) Anxiety disorder, unspecified (4) Major depressive disorder with psychotic features (5) Psychotic disorder (6) Dementia, vascular, with depression (7) Dementia, vascular, with delusions (8) Dementia in Alzheimer's disease with depression (9) Dementia in Alzheimer's disease with delusions SOHAN KEARNS MD December 12, 2019 22:07
--- NOTE | 2019-12-12 22:16 | PN ---
DATE: 12/12/2019 PSYCHIATRIC PROGRESS NOTE This note covers elements not covered in my initial note. SUBJECTIVE: I met with the patient evening of 12/12/2019 on telehealth rounds. Per LONI Ibarra, the patient slept 7 hours previous night. She is still hearing voices and singing voices. She talked to her daughter in the afternoon after that she did much better, received Zyprexa x 1 for the psychosis. The patient was also staffed at a treatment team meeting with the entire team in the morning. The patient's daughter, Meka attended together with LONI Kc and social service staff and activity therapy staff Brigitte. She has been demanding to use the telephone at times, obsessed about clothes in her closet. REVIEW OF SYSTEMS: Ambulation is reasonable. No CV, , pulmonary, eye system symptoms on review. MENTAL STATUS EXAM: Reasonably oriented. Speech is coherent. In fact, she is hard of hearing as part of the review of systems and to talk loudly during the assessment. Abstraction fair, computation impaired, language function intact, attention span short. Mood and affect somewhat withdrawn. LABORATORY DATA: Reviewed. IMPRESSION: Major depressive disorder with psychotic features; psychotic disorder, unspecified. Rest unchanged. PLAN: Continue psychotropics from initial note. Increase Risperdal to 0.375 mg at bedtime. Maintain Remeron 7.5 mg at bedtime, Effexor XR 150 mg a day, may reduce this further if psychotic symptoms persist despite increase in Risperdal. Maintain Zyprexa p.r.n., trazodone p.r.n. and Benadryl p.r.n. SOHAN KEARNS MD DR: MATT/heri JOB#: [id number] / [id number]
[2019-12-13 06:29] VITALS: BP 150/83
[2019-12-13] MEDS: metFORMIN XR 500 MG TAB.ER.24H PO SCH (08:21)
[2019-12-13] MEDS: CHOLECALCIFEROL (VITAMIN D3) 1,000 UNIT TABLET PO SCH (08:21)
[2019-12-13] MEDS: PANTOPRAZOLE 40 MG TABLET. PO SCH (08:21)
[2019-12-13] MEDS: OMEGA-3 FATTY ACIDS/FISH OIL 1,000 MG CAPSULE. PO SCH (08:21)
[2019-12-13] MEDS: MULTIVITAMIN I-VITE TABLET. PO SCH (08:21)
[2019-12-13] MEDS: MAGNESIUM OXIDE 400 MG TABLET PO SCH (08:21)
[2019-12-13] MEDS: VENLAFAXINE XR 37.5 MG CAP.ER.24H. PO SCH (08:22)
[2019-12-13] MEDS: EZETIMIBE 10 MG TABLET PO SCH (08:22)
[2019-12-13 09:26] LABS: HEMATOCRIT 42.6 % (36.0-47.0); HEMOGLOBIN 14.2 g/dL (12.0-15.5); RED BLOOD COUNT 4.78 x10^6/uL (3.50-5.40); RED CELL DISTRIBUTION WIDTH 13.8 % (11.5-14.5); WHITE BLOOD COUNT 5.5 x10^3/uL (4.0-11.0)
[2019-12-13 09:31] LABS: CALCIUM 9.1 mg/dL (8.5-10.1); CREATININE 0.7 mg/dL (0.6-1.0); GFR 79.5; POTASSIUM 4.3 mmol/L (3.5-5.1)
[2019-12-13 16:43] VITALS: BP 119/76
[2019-12-13] MEDS: traZODone 50 MG TABLET. PO SCH (19:58)
[2019-12-13] MEDS: risperiDONE 0.25 MG TABLET. PO SCH (19:59)
[2019-12-13] MEDS: MIRTAZAPINE 15 MG TABLET PO SCH (19:59)
[2019-12-13] MEDS: LISINOPRIL 10 MG TABLET PO SCH (19:59)
[2019-12-13] MEDS: ACETAMINOPHEN 500 MG TABLET PO SCH (20:00)
--- NOTE | 2019-12-13 21:59 | PDOC ---
Exam Note: Benjamin Note: Please also refer to the separate dictated note~for this date of service dictated separately.~Patient seen individually. Discussed the patient with Nursing staff reviewed the chart.~Reviewed interim history and current functioning. Reviewed vital signs,~Labs/ Radiology~and current medications noted below. Continue current treatment with the changes noted in the dictated addendum note Assessment: Vital Signs/I&O: Vital Signs Date Time Temp Pulse Resp B/P (MAP) Pulse Ox O2 Delivery O2 Flow Rate FiO2 12/13/19 21:22 98.3 95 12/13/19 19:59 81 119/76 12/13/19 16:43 18 12/10/19 06:20 Room Air I & O 12/12/19 12/12/19 12/13/19 15:00 23:00 07:00 Intake Total 960 ml 240 ml Balance 960 ml 240 ml Labs: Laboratory Tests Test 12/13/19 08:50 White Blood Count 5.5 x10^3/uL (4.0-11.0) Red Blood Count 4.78 x10^6/uL (3.50-5.40) Hemoglobin 14.2 g/dL (12.0-15.5) Hematocrit 42.6 % (36.0-47.0) Mean Corpuscular Volume 89 fL (79-100) Mean Corpuscular Hemoglobin 30 pg (25-35) Mean Corpuscular Hemoglobin Concent 33 g/dL (31-37) Red Cell Distribution Width 13.8 % (11.5-14.5) Platelet Count 296 x10^3/uL (140-400) Sodium Level 139 mmol/L (136-145) Potassium Level 4.3 mmol/L (3.5-5.1) Chloride Level 102 mmol/L (98-107) Carbon Dioxide Level 29 mmol/L (21-32) Anion Gap 8 (6-14) Blood Urea Nitrogen 14 mg/dL (7-20) Creatinine 0.7 mg/dL (0.6-1.0) Estimated GFR (Cockcroft-Gault) 79.5 Glucose Level 173 mg/dL (70-99) H Calcium Level 9.1 mg/dL (8.5-10.1) Current Medications: I have reviewed the current psychotropics carefully including drug interactions. Risk benefit ratio favors no change other than as noted in my dictated progress note. Diagnosis: Problems: (1) Psychosis (2) Mild cognitive impairment (3) Anxiety disorder, unspecified (4) Major depressive disorder with psychotic features (5) Psychotic disorder (6) Dementia, vascular, with depression (7) Dementia, vascular, with delusions (8) Dementia in Alzheimer's disease with depression (9) Dementia in Alzheimer's disease with delusions SOHAN KEARNS MD December 13, 2019 21:59
[2019-12-14 06:08] VITALS: BP 151/85
[2019-12-14] MEDS: metFORMIN XR 500 MG TAB.ER.24H PO SCH (08:39)
[2019-12-14] MEDS: PANTOPRAZOLE 40 MG TABLET. PO SCH (08:39)
[2019-12-14] MEDS: VENLAFAXINE XR 37.5 MG CAP.ER.24H. PO SCH (08:40)
[2019-12-14] MEDS: OMEGA-3 FATTY ACIDS/FISH OIL 1,000 MG CAPSULE. PO SCH (08:40)
[2019-12-14] MEDS: MAGNESIUM OXIDE 400 MG TABLET PO SCH (08:40)
[2019-12-14] MEDS: MULTIVITAMIN I-VITE TABLET. PO SCH (08:40)
[2019-12-14] MEDS: EZETIMIBE 10 MG TABLET PO SCH (08:42)
[2019-12-14] MEDS: CHOLECALCIFEROL (VITAMIN D3) 1,000 UNIT TABLET PO SCH (08:42)
[2019-12-14] MEDS: risperiDONE 0.25 MG TABLET. PO SCH ×2 (08:48→20:32)
[2019-12-14 16:13] VITALS: BP 136/81
[2019-12-14] MEDS: LISINOPRIL 10 MG TABLET PO SCH (20:31)
[2019-12-14] MEDS: traZODone 50 MG TABLET. PO SCH (20:31)
[2019-12-14] MEDS: ACETAMINOPHEN 500 MG TABLET PO SCH (20:32)
[2019-12-14] MEDS: MIRTAZAPINE 15 MG TABLET PO SCH (20:32)
--- NOTE | 2019-12-14 22:28 | PDOC ---
Exam Note: Benjamin Note: Please also refer to the separate dictated note~for this date of service dictated separately.~Patient seen individually. Discussed the patient with Nursing staff reviewed the chart.~Reviewed interim history and current functioning. Reviewed vital signs,~Labs/ Radiology~and current medications noted below. Continue current treatment with the changes noted in the dictated addendum note Assessment: Vital Signs/I&O: Vital Signs Date Time Temp Pulse Resp B/P (MAP) Pulse Ox O2 Delivery O2 Flow Rate FiO2 12/14/19 20:56 98.0 95 12/14/19 20:31 108 136/81 12/14/19 16:13 20 Room Air I & O 12/13/19 12/13/19 12/14/19 15:00 23:00 07:00 Intake Total 600 ml 360 ml Balance 600 ml 360 ml Current Medications: Meds: Current Medications Medications (Trade) Dose Ordered Sig/Ed Route PRN Reason Start Time Stop Time Status Last Admin Dose Admin Risperidone (RisperDAL) 0.25 mg BID PO 12/14/19 09:00 12/14/19 20:32 I have reviewed the current psychotropics carefully including drug interactions. Risk benefit ratio favors no change other than as noted in my dictated progress note. Diagnosis: Problems: (1) Psychosis (2) Mild cognitive impairment (3) Anxiety disorder, unspecified (4) Major depressive disorder with psychotic features (5) Psychotic disorder (6) Dementia, vascular, with depression (7) Dementia, vascular, with delusions (8) Dementia in Alzheimer's disease with depression (9) Dementia in Alzheimer's disease with delusions SOHAN KEARNS MD December 14, 2019 22:28
[2019-12-15 06:45] VITALS: BP 160/90
--- NOTE | 2019-12-15 08:01 | PDOC ---
Exam Note: Benjamin Note: This note is a late entry for 12/13/2019 covers elements not covered in my initial note. Subjective: The patient was seen face to face in the evening of 12/13/2019. Nursing report was with Bunny IVEY. Discussed the patient with nursing staff reviewed the chart. She slept 7-1/4 hours previous night. She was tearful in the morning, still hearing voices and she hearing people talk about her . She did receive Zyprexa p.r.n., did a little better after that. Review of Systems: She is hard of hearing. I met with her in her room. No CV, GI/, Pulmonary, Eye system symptoms on review. Mental Status Exam: Reasonably oriented. Speech is coherent. Abstraction is fair. Computation is impaired. Language function is intact. Mood and affect remains somewhat anxious, labile. No suicidal or homicidal ideation. Laboratory Data: Reviewed. Impression: Major depressive disorder with psychotic features. Psychotic disorder unspecified. Rest unchanged. Plan: Change Risperdal from 0.375 mg h.s. to 0.25 mg twice a day. Maintain Remeron. Effexor was reduced and Zyprexa p.r.n., trazodone p.r.n., Benadryl p.r.n. Assessment: Vital Signs/I&O: Vital Signs Date Time Temp Pulse Resp B/P (MAP) Pulse Ox O2 Delivery O2 Flow Rate FiO2 12/15/19 06:45 98.2 98 16 160/90 (113) 95 12/14/19 16:13 Room Air I & O 12/14/19 12/14/19 12/15/19 15:00 23:00 07:00 Intake Total 720 ml 460 ml Balance 720 ml 460 ml Current Medications: Meds: Current Medications Medications (Trade) Dose Ordered Sig/Ed Route PRN Reason Start Time Stop Time Status Last Admin Dose Admin Risperidone (RisperDAL) 0.25 mg BID PO 12/14/19 09:00 12/14/19 20:32 I have reviewed the current psychotropics carefully including drug interactions. Risk benefit ratio favors no change other than as noted in my dictated progress note. Diagnosis: Problems: (1) Psychosis (2) Mild cognitive impairment (3) Anxiety disorder, unspecified (4) Major depressive disorder with psychotic features (5) Psychotic disorder (6) Dementia, vascular, with depression (7) Dementia, vascular, with delusions (8) Dementia in Alzheimer's disease with depression (9) Dementia in Alzheimer's disease with delusions SOHAN KEARNS MD December 15, 2019 08:01
--- NOTE | 2019-12-15 08:02 | PDOC ---
Exam Note: Benjamin Note: This note is a late entry for 12/14/2019 covers elements not covered in my initial note. Subjective: The patient was seen face to face in the evening of 12/14/2019. Nursing report was with Yamini IVEY. Discussed the patient with nursing staff reviewed the chart. She slept 7 hours previous night. She is still hearing music and states she is hearing voices, telling her that she is going to tonight and we cry for you. Review of Systems: She is hard of hearing. No CV, GI/, Pulmonary, Eye system symptoms on review. Mental Status Exam: I initially met the patient in the dining room but she wanted to meet in her room and we met later on rounds in her room at length. She is suspicious of the voices, not wanting anyone else to hear those or what we are talking about. Abstraction is fair. Computation is impaired. Language function is intact. Attention span is short. Mood and affect remains somewhat anxious, labile. She is quite obsessive. Laboratory Data: Reviewed. Impression: Major depressive disorder with psychotic features. Psychotic disorder unspecified. Rest unchanged. Plan: I have carefully reviewed the patients current psychotropics. She is quite obsessive, anxious. We will stop the Effexor and start Luvox 25 mg a day for 3 days and 50 mg a day. Risperdal was increases to 0.25 mg twice a day. Maintain Remeron 7.5 mg h.s., Zyprexa p.r.n., trazodone and Benadryl p.r.n. Assessment: Vital Signs/I&O: Vital Signs Date Time Temp Pulse Resp B/P (MAP) Pulse Ox O2 Delivery O2 Flow Rate FiO2 12/15/19 06:45 98.2 98 16 160/90 (113) 95 12/14/19 16:13 Room Air I & O 12/14/19 12/14/19 12/15/19 15:00 23:00 07:00 Intake Total 720 ml 460 ml Balance 720 ml 460 ml Current Medications: Meds: Current Medications Medications (Trade) Dose Ordered Sig/Ed Route PRN Reason Start Time Stop Time Status Last Admin Dose Admin Risperidone (RisperDAL) 0.25 mg BID PO 12/14/19 09:00 12/14/19 20:32 I have reviewed the current psychotropics carefully including drug interactions. Risk benefit ratio favors no change other than as noted in my dictated progress note. Diagnosis: Problems: (1) Psychosis (2) Mild cognitive impairment (3) Anxiety disorder, unspecified (4) Major depressive disorder with psychotic features (5) Psychotic disorder (6) Dementia, vascular, with depression (7) Dementia, vascular, with delusions (8) Dementia in Alzheimer's disease with depression (9) Dementia in Alzheimer's disease with delusions SOHAN KEARNS MD December 15, 2019 08:02
[2019-12-15] MEDS: MULTIVITAMIN I-VITE TABLET. PO SCH (08:22)
[2019-12-15] MEDS: PANTOPRAZOLE 40 MG TABLET. PO SCH (08:22)
[2019-12-15] MEDS: OMEGA-3 FATTY ACIDS/FISH OIL 1,000 MG CAPSULE. PO SCH (08:22)
[2019-12-15] MEDS: metFORMIN XR 500 MG TAB.ER.24H PO SCH (08:22)
[2019-12-15] MEDS: MAGNESIUM OXIDE 400 MG TABLET PO SCH (08:23)
[2019-12-15] MEDS: CHOLECALCIFEROL (VITAMIN D3) 1,000 UNIT TABLET PO SCH (08:23)
[2019-12-15] MEDS: risperiDONE 0.25 MG TABLET. PO SCH ×2 (08:23→20:41)
[2019-12-15] MEDS: EZETIMIBE 10 MG TABLET PO SCH (08:23)
[2019-12-15 16:06] VITALS: BP 139/84
[2019-12-15] MEDS: ACETAMINOPHEN 500 MG TABLET PO SCH (20:41)
[2019-12-15] MEDS: LISINOPRIL 10 MG TABLET PO SCH (20:42)
[2019-12-15] MEDS: MIRTAZAPINE 15 MG TABLET PO SCH (20:42)
[2019-12-15] MEDS: traZODone 50 MG TABLET. PO SCH (20:42)
--- NOTE | 2019-12-15 21:58 | PDOC ---
Exam Note: Benjamin Note: Please also refer to the separate dictated note~for this date of service dictated separately.~Patient seen individually. Discussed the patient with Nursing staff reviewed the chart.~Reviewed interim history and current functioning. Reviewed vital signs,~Labs/ Radiology~and current medications noted below. Continue current treatment with the changes noted in the dictated addendum note Assessment: Vital Signs/I&O: Vital Signs Date Time Temp Pulse Resp B/P (MAP) Pulse Ox O2 Delivery O2 Flow Rate FiO2 12/15/19 20:42 96 139/84 12/15/19 18:04 98.3 12/15/19 16:06 16 95 Room Air I & O 12/14/19 12/14/19 12/15/19 15:00 23:00 07:00 Intake Total 720 ml 460 ml Balance 720 ml 460 ml Current Medications: Meds: Current Medications Medications (Trade) Dose Ordered Sig/Ed Route PRN Reason Start Time Stop Time Status Last Admin Dose Admin Fluvoxamine Maleate (Luvox) 25 mg DAILY PO 12/15/19 09:00 12/17/19 09:01 12/15/19 08:25 I have reviewed the current psychotropics carefully including drug interactions. Risk benefit ratio favors no change other than as noted in my dictated progress note. Diagnosis: Problems: (1) Psychosis (2) Mild cognitive impairment (3) Anxiety disorder, unspecified (4) Major depressive disorder with psychotic features (5) Psychotic disorder (6) Dementia, vascular, with depression (7) Dementia, vascular, with delusions (8) Dementia in Alzheimer's disease with depression (9) Dementia in Alzheimer's disease with delusions SOHAN KEARNS MD December 15, 2019 21:58
[2019-12-16 06:18] VITALS: BP 124/70
--- NOTE | 2019-12-16 07:14 | PDOC ---
Exam Note: Benjamin Note: This note is a late entry for 12/15/2019 covers elements not covered in my initial note. Subjective: The patient was seen face to face in the evening of 12/15/2019. Nursing report was with Yamini IVEY. Discussed the patient with nursing staff reviewed the chart. She slept reasonably previous night. Previous night she was having auditory hallucinations, hearing music today, states music is less loud but as I met with her at length in her room in the evening she was complaining of some dizziness after we added the Luvox previous night. Review of Systems: She is hard of hearing. No CV, GI/, Pulmonary, Eye system symptoms on review. Mental Status Exam: Reasonably oriented. Speech is coherent, has some latency. Abstraction is fair. Computation is impaired. Language function is intact. Mood and affect remains withdrawn. She still has intermittent obsessive thought processes, questionable hallucinations. Laboratory Data: Reviewed. Impression: Major depressive disorder with psychotic features. Psychotic disorder unspecified. Rest unchanged. Plan: No change from initial note. We will continue to gradually increase the Luvox. Rest unchanged for now. Assessment: Vital Signs/I&O: Vital Signs Date Time Temp Pulse Resp B/P (MAP) Pulse Ox O2 Delivery O2 Flow Rate FiO2 12/16/19 06:18 97.9 100 16 124/70 (88) 92 12/15/19 16:06 Room Air I & O 12/15/19 12/15/19 12/16/19 15:00 23:00 07:00 Intake Total 600 ml 360 ml Balance 600 ml 360 ml Current Medications: Meds: Current Medications Medications (Trade) Dose Ordered Sig/Ed Route PRN Reason Start Time Stop Time Status Last Admin Dose Admin Fluvoxamine Maleate (Luvox) 25 mg DAILY PO 12/15/19 09:00 12/17/19 09:01 12/15/19 08:25 I have reviewed the current psychotropics carefully including drug interactions. Risk benefit ratio favors no change other than as noted in my dictated progress note. Diagnosis: Problems: (1) Psychosis (2) Mild cognitive impairment (3) Anxiety disorder, unspecified (4) Major depressive disorder with psychotic features (5) Psychotic disorder (6) Dementia, vascular, with depression (7) Dementia, vascular, with delusions (8) Dementia in Alzheimer's disease with depression (9) Dementia in Alzheimer's disease with delusions URMILA,MAN M MD December 16, 2019 07:14
[2019-12-16 08:12] LABS: BASO # 0.1 x10^3/uL (0.0-0.2); BASO % 1 % (0-3); EOS # 0.2 x10^3/uL (0.0-0.7); EOS % 3 % (0-3); HEMATOCRIT 44.9 % (36.0-47.0); HEMOGLOBIN 14.9 g/dL (12.0-15.5); LYMPH # 1.9 x10^3/uL (1.0-4.8); LYMPH % 30 % (24-48); MEAN CORPUSCULAR HEMOGLOBIN 30 pg (25-35); MEAN CORPUSCULAR HGB CONC 33 g/dL (31-37); MEAN CORPUSCULAR VOLUME 90 fL (79-100); MONO # 0.6 x10^3/uL (0.0-1.1); MONO % 10 % (0-9); NEUT # 3.5 x10^3uL (1.8-7.7); NEUT % 56 % (31-73); PLATELET COUNT 324 x10^3/uL (140-400); RED BLOOD COUNT 5.01 x10^6/uL (3.50-5.40); RED CELL DISTRIBUTION WIDTH 14.1 % (11.5-14.5); WHITE BLOOD COUNT 6.3 x10^3/uL (4.0-11.0)
[2019-12-16 08:33] LABS: ALBUMIN 3.5 g/dL (3.4-5.0); CALCIUM 9.4 mg/dL (8.5-10.1); CREATININE 0.7 mg/dL (0.6-1.0); GFR 79.5; TOTAL BILIRUBIN 0.3 mg/dL (0.2-1.0); TOTAL PROTEIN 6.9 g/dL (6.4-8.2)
[2019-12-16] MEDS: PANTOPRAZOLE 40 MG TABLET. PO SCH (09:28)
[2019-12-16] MEDS: metFORMIN XR 500 MG TAB.ER.24H PO SCH (09:28)
[2019-12-16] MEDS: CHOLECALCIFEROL (VITAMIN D3) 1,000 UNIT TABLET PO SCH (09:28)
[2019-12-16] MEDS: MULTIVITAMIN I-VITE TABLET. PO SCH (09:28)
[2019-12-16] MEDS: risperiDONE 0.25 MG TABLET. PO SCH ×2 (09:28→20:30)
[2019-12-16] MEDS: MAGNESIUM OXIDE 400 MG TABLET PO SCH (09:29)
[2019-12-16] MEDS: OMEGA-3 FATTY ACIDS/FISH OIL 1,000 MG CAPSULE. PO SCH (09:29)
[2019-12-16] MEDS: EZETIMIBE 10 MG TABLET PO SCH (09:29)
[2019-12-16 16:16] VITALS: BP 160/92
[2019-12-16] MEDS: MIRTAZAPINE 15 MG TABLET PO SCH (20:30)
[2019-12-16] MEDS: LISINOPRIL 10 MG TABLET PO SCH (20:30)
[2019-12-16] MEDS: traZODone 50 MG TABLET. PO SCH (20:30)
[2019-12-16] MEDS: ACETAMINOPHEN 500 MG TABLET PO SCH (20:30)
[2019-12-17 05:40] VITALS: BP 133/83
[2019-12-17] MEDS: EZETIMIBE 10 MG TABLET PO SCH (08:12)
[2019-12-17] MEDS: metFORMIN XR 500 MG TAB.ER.24H PO SCH (08:12)
[2019-12-17] MEDS: PANTOPRAZOLE 40 MG TABLET. PO SCH (08:12)
[2019-12-17] MEDS: MAGNESIUM OXIDE 400 MG TABLET PO SCH (08:12)
[2019-12-17] MEDS: OMEGA-3 FATTY ACIDS/FISH OIL 1,000 MG CAPSULE. PO SCH (08:13)
[2019-12-17] MEDS: CHOLECALCIFEROL (VITAMIN D3) 1,000 UNIT TABLET PO SCH (08:13)
[2019-12-17] MEDS: MULTIVITAMIN I-VITE TABLET. PO SCH (08:13)
[2019-12-17] MEDS: risperiDONE 0.25 MG TABLET. PO SCH ×2 (08:13→19:45)
--- NOTE | 2019-12-17 08:17 | PDOC ---
Exam Note: Benjamin Note: This is a late entry for DOS 12/16/2019. Please also refer to the separate dictated note~for this date of service dictated separately.~Patient seen individually. Discussed the patient with Nursing staff reviewed the chart.~Reviewed interim history and current functioning. Reviewed vital signs,~Labs/ Radiology~and current medications noted below. Continue current treatment with the changes noted in the dictated addendum note Assessment: Vital Signs/I&O: Vital Signs Date Time Temp Pulse Resp B/P (MAP) Pulse Ox O2 Delivery O2 Flow Rate FiO2 12/17/19 05:40 98.0 105 18 133/83 (100) 95 12/15/19 16:06 Room Air I & O 12/16/19 12/16/19 12/17/19 14:59 22:59 06:59 Intake Total 480 ml 360 ml Balance 480 ml 360 ml Current Medications: I have reviewed the current psychotropics carefully including drug interactions. Risk benefit ratio favors no change other than as noted in my dictated progress note. Diagnosis: Problems: (1) Psychosis (2) Mild cognitive impairment (3) Anxiety disorder, unspecified (4) Major depressive disorder with psychotic features (5) Psychotic disorder (6) Dementia, vascular, with depression (7) Dementia, vascular, with delusions (8) Dementia in Alzheimer's disease with depression (9) Dementia in Alzheimer's disease with delusions SOHAN KEARNS MD December 17, 2019 08:17
[2019-12-17 15:57] VITALS: BP 134/79
[2019-12-17] MEDS: traZODone 50 MG TABLET. PO SCH (19:43)
[2019-12-17] MEDS: MIRTAZAPINE 15 MG TABLET PO SCH (19:44)
[2019-12-17] MEDS: LISINOPRIL 10 MG TABLET PO SCH (19:44)
[2019-12-17] MEDS: ACETAMINOPHEN 500 MG TABLET PO SCH (19:45)
--- NOTE | 2019-12-17 22:08 | PDOC ---
Exam Note: Benjamin Note: Please also refer to the separate dictated note~for this date of service dictated separately.~Patient seen individually. Discussed the patient with Nursing staff reviewed the chart.~Reviewed interim history and current functioning. Reviewed vital signs,~Labs/ Radiology~and current medications noted below. Continue current treatment with the changes noted in the dictated addendum note Assessment: Vital Signs/I&O: Vital Signs Date Time Temp Pulse Resp B/P (MAP) Pulse Ox O2 Delivery O2 Flow Rate FiO2 12/17/19 19:44 114 134/79 12/17/19 18:36 98.5 12/17/19 15:57 18 95 12/15/19 16:06 Room Air I & O 12/16/19 12/16/19 12/17/19 15:00 23:00 07:00 Intake Total 480 ml 360 ml Balance 480 ml 360 ml Current Medications: I have reviewed the current psychotropics carefully including drug interactions. Risk benefit ratio favors no change other than as noted in my dictated progress note. Diagnosis: Problems: (1) Psychosis (2) Mild cognitive impairment (3) Anxiety disorder, unspecified (4) Major depressive disorder with psychotic features (5) Psychotic disorder (6) Dementia, vascular, with depression (7) Dementia, vascular, with delusions (8) Dementia in Alzheimer's disease with depression (9) Dementia in Alzheimer's disease with delusions SOHAN KEARNS MD December 17, 2019 22:08
[2019-12-18 05:27] VITALS: BP 132/83
[2019-12-18 07:17] LABS: BASO # 0.1 x10^3/uL (0.0-0.2); BASO % 1 % (0-3); EOS # 0.2 x10^3/uL (0.0-0.7); EOS % 3 % (0-3); HEMATOCRIT 40.3 % (36.0-47.0); HEMOGLOBIN 13.7 g/dL (12.0-15.5); LYMPH # 1.2 x10^3/uL (1.0-4.8); LYMPH % 22 % (24-48); MEAN CORPUSCULAR HEMOGLOBIN 30 pg (25-35); MEAN CORPUSCULAR HGB CONC 34 g/dL (31-37); MEAN CORPUSCULAR VOLUME 88 fL (79-100); MONO # 0.6 x10^3/uL (0.0-1.1); MONO % 11 % (0-9); NEUT # 3.5 x10^3uL (1.8-7.7); NEUT % 63 % (31-73); PLATELET COUNT 254 x10^3/uL (140-400); RED BLOOD COUNT 4.55 x10^6/uL (3.50-5.40); RED CELL DISTRIBUTION WIDTH 13.7 % (11.5-14.5); WHITE BLOOD COUNT 5.5 x10^3/uL (4.0-11.0)
--- NOTE | 2019-12-18 07:44 | PDOC ---
Exam Note: Benjamin Note: This note is a late entry for 12/16/2019 covers elements not covered in my initial note. Subjective: The patient was seen face to face in the evening of 12/16/2019. Nursing report was with Braulio IVEY. Discussed the patient with nursing staff reviewed the chart. She slept 7-3/4 hours previous night. Overall per nursing report patients hallucinations appear improved. She woke previous evening, felt someone was going to kill her, was paranoid, has been calmer during the day on 12/16/2019. Review of Systems: She is hard of hearing. No CV, GI/, Pulmonary, Eye system symptoms on review. Mental Status Exam: Reasonably oriented. She is very verbal during the individual visit. She looks out of her window the green surrounding and the trees, hills in the distant from the panoramic windows and states sometimes when her mind is empty it drifts towards paranoid thoughts. We discussed at some length ways to counteract this to keep her mind active and busy even for simple things like if it is green how does the weather affect the greenery and what does green mean including chlorophyll etc. The more she can keep her mind interactive, busy trying to figure things out the lesser her mind would tend to drift towards some of the psychotic symptoms she seems to experience even though they are better. Laboratory Data: Reviewed. Impression: Major depressive disorder with psychotic features. Psychotic disorder unspecified. Rest unchanged. Plan: No change from initial note. Assessment: Vital Signs/I&O: Vital Signs Date Time Temp Pulse Resp B/P (MAP) Pulse Ox O2 Delivery O2 Flow Rate FiO2 12/18/19 05:27 97.9 110 18 132/83 (99) 94 12/15/19 16:06 Room Air I & O 12/17/19 12/17/19 12/18/19 15:00 23:00 07:00 Intake Total 960 ml 600 ml Balance 960 ml 600 ml Labs: Laboratory Tests Test 12/18/19 06:38 White Blood Count 5.5 x10^3/uL (4.0-11.0) Red Blood Count 4.55 x10^6/uL (3.50-5.40) Hemoglobin 13.7 g/dL (12.0-15.5) Hematocrit 40.3 % (36.0-47.0) Mean Corpuscular Volume 88 fL (79-100) Mean Corpuscular Hemoglobin 30 pg (25-35) Mean Corpuscular Hemoglobin Concent 34 g/dL (31-37) Red Cell Distribution Width 13.7 % (11.5-14.5) Platelet Count 254 x10^3/uL (140-400) Neutrophils (%) (Auto) 63 % (31-73) Lymphocytes (%) (Auto) 22 % (24-48) L Monocytes (%) (Auto) 11 % (0-9) H Eosinophils (%) (Auto) 3 % (0-3) Basophils (%) (Auto) 1 % (0-3) Neutrophils # (Auto) 3.5 x10^3uL (1.8-7.7) Lymphocytes # (Auto) 1.2 x10^3/uL (1.0-4.8) Monocytes # (Auto) 0.6 x10^3/uL (0.0-1.1) Eosinophils # (Auto) 0.2 x10^3/uL (0.0-0.7) Basophils # (Auto) 0.1 x10^3/uL (0.0-0.2) Current Medications: I have reviewed the current psychotropics carefully including drug interactions. Risk benefit ratio favors no change other than as noted in my dictated progress note. Diagnosis: Problems: (1) Psychosis (2) Mild cognitive impairment (3) Anxiety disorder, unspecified (4) Major depressive disorder with psychotic features (5) Psychotic disorder (6) Dementia, vascular, with depression (7) Dementia, vascular, with delusions (8) Dementia in Alzheimer's disease with depression (9) Dementia in Alzheimer's disease with delusions SOHAN KEARNS MD December 18, 2019 07:44
[2019-12-18 07:46] LABS: ALBUMIN 3.1 g/dL (3.4-5.0); CALCIUM 9.2 mg/dL (8.5-10.1); CREATININE 0.8 mg/dL (0.6-1.0); GFR 68.2; POTASSIUM 3.9 mmol/L (3.5-5.1); TOTAL BILIRUBIN 0.3 mg/dL (0.2-1.0); TOTAL PROTEIN 6.2 g/dL (6.4-8.2)
--- NOTE | 2019-12-18 08:06 | PDOC ---
Exam Note: Benjamin Note: This note is a late entry for 12/17/2019 covers elements not covered in my initial note. Subjective: The patient was seen face to face with the treatment team in the morning including Saskia Hadley, and Kinsey (social work coordinator), Brigitte, Activity [facility]. Nursing report was with Braulio IVEY. Discussed the patient with nursing staff in the evening reviewed the chart. She slept 6 hours previous night. Previous evening she was having hallucinations, was given a evan with music put on it and it seemed to distract her. She was less obsessed with her hallucinations and seemed to be helpful. Review of Systems: She is hard of hearing. No CV, GI/, Pulmonary, Eye system symptoms on review. Mental Status Exam: Reasonably oriented. She is very verbal. Speech coherent. Abstraction is fair. Computation is impaired. Language function is intact. Attention span is short. Mood and affect remains somewhat anxious, labile. She is quite obsessive. Laboratory Data: Reviewed. Impression: Major depressive disorder with psychotic features. Psychotic disorder unspecified. Rest unchanged. Plan: No change from initial note. We will transition her to a lower level of care later this week or perhaps next week depending on how her hallucinations resolve. Assessment: Vital Signs/I&O: Vital Signs Date Time Temp Pulse Resp B/P (MAP) Pulse Ox O2 Delivery O2 Flow Rate FiO2 12/18/19 05:27 97.9 110 18 132/83 (99) 94 12/15/19 16:06 Room Air I & O 12/17/19 12/17/19 12/18/19 15:00 23:00 07:00 Intake Total 960 ml 600 ml Balance 960 ml 600 ml Labs: Laboratory Tests Test 12/18/19 06:38 White Blood Count 5.5 x10^3/uL (4.0-11.0) Red Blood Count 4.55 x10^6/uL (3.50-5.40) Hemoglobin 13.7 g/dL (12.0-15.5) Hematocrit 40.3 % (36.0-47.0) Mean Corpuscular Volume 88 fL (79-100) Mean Corpuscular Hemoglobin 30 pg (25-35) Mean Corpuscular Hemoglobin Concent 34 g/dL (31-37) Red Cell Distribution Width 13.7 % (11.5-14.5) Platelet Count 254 x10^3/uL (140-400) Neutrophils (%) (Auto) 63 % (31-73) Lymphocytes (%) (Auto) 22 % (24-48) L Monocytes (%) (Auto) 11 % (0-9) H Eosinophils (%) (Auto) 3 % (0-3) Basophils (%) (Auto) 1 % (0-3) Neutrophils # (Auto) 3.5 x10^3uL (1.8-7.7) Lymphocytes # (Auto) 1.2 x10^3/uL (1.0-4.8) Monocytes # (Auto) 0.6 x10^3/uL (0.0-1.1) Eosinophils # (Auto) 0.2 x10^3/uL (0.0-0.7) Basophils # (Auto) 0.1 x10^3/uL (0.0-0.2) Sodium Level 142 mmol/L (136-145) Potassium Level 3.9 mmol/L (3.5-5.1) Chloride Level 105 mmol/L (98-107) Carbon Dioxide Level 32 mmol/L (21-32) Anion Gap 5 (6-14) L Blood Urea Nitrogen 14 mg/dL (7-20) Creatinine 0.8 mg/dL (0.6-1.0) Estimated GFR (Cockcroft-Gault) 68.2 BUN/Creatinine Ratio 18 (6-20) Glucose Level 104 mg/dL (70-99) H Calcium Level 9.2 mg/dL (8.5-10.1) Total Bilirubin 0.3 mg/dL (0.2-1.0) Aspartate Amino Transferase (AST) 17 U/L (15-37) Alanine Aminotransferase (ALT) 23 U/L (14-59) Alkaline Phosphatase 50 U/L (46-116) Total Protein 6.2 g/dL (6.4-8.2) L Albumin 3.1 g/dL (3.4-5.0) L Albumin/Globulin Ratio 1.0 (1.0-1.7) Current Medications: I have reviewed the current psychotropics carefully including drug interactions. Risk benefit ratio favors no change other than as noted in my dictated progress note. Diagnosis: Problems: (1) Psychosis (2) Mild cognitive impairment (3) Anxiety disorder, unspecified (4) Major depressive disorder with psychotic features (5) Psychotic disorder (6) Dementia, vascular, with depression (7) Dementia, vascular, with delusions (8) Dementia in Alzheimer's disease with depression (9) Dementia in Alzheimer's disease with delusions SOHAN KEARNS MD December 18, 2019 08:06
[2019-12-18] MEDS: OMEGA-3 FATTY ACIDS/FISH OIL 1,000 MG CAPSULE. PO SCH (08:15)
[2019-12-18] MEDS: risperiDONE 0.25 MG TABLET. PO SCH ×2 (08:15→20:43)
[2019-12-18] MEDS: CHOLECALCIFEROL (VITAMIN D3) 1,000 UNIT TABLET PO SCH (08:15)
[2019-12-18] MEDS: MULTIVITAMIN I-VITE TABLET. PO SCH (08:15)
[2019-12-18] MEDS: MAGNESIUM OXIDE 400 MG TABLET PO SCH (08:15)
[2019-12-18] MEDS: EZETIMIBE 10 MG TABLET PO SCH (08:15)
[2019-12-18] MEDS: PANTOPRAZOLE 40 MG TABLET. PO SCH (08:16)
[2019-12-18] MEDS: metFORMIN XR 500 MG TAB.ER.24H PO SCH (08:16)
[2019-12-18 15:53] VITALS: BP 120/75
[2019-12-18] MEDS: traZODone 50 MG TABLET. PO SCH (20:42)
[2019-12-18] MEDS: MIRTAZAPINE 15 MG TABLET PO SCH (20:42)
[2019-12-18] MEDS: ACETAMINOPHEN 500 MG TABLET PO SCH (20:42)
[2019-12-18] MEDS: LISINOPRIL 10 MG TABLET PO SCH (20:43)
--- NOTE | 2019-12-18 22:08 | PDOC ---
Exam Note: Benjamin Note: Please also refer to the separate dictated note~for this date of service dictated separately.~Patient seen individually. Discussed the patient with Nursing staff reviewed the chart.~Reviewed interim history and current functioning. Reviewed vital signs,~Labs/ Radiology~and current medications noted below. Continue current treatment with the changes noted in the dictated addendum note Assessment: Vital Signs/I&O: Vital Signs Date Time Temp Pulse Resp B/P (MAP) Pulse Ox O2 Delivery O2 Flow Rate FiO2 12/18/19 20:43 115 120/75 12/18/19 20:34 97.6 95 12/18/19 15:53 18 12/15/19 16:06 Room Air I & O 12/17/19 12/17/19 12/18/19 15:00 23:00 07:00 Intake Total 960 ml 600 ml Balance 960 ml 600 ml Labs: Laboratory Tests Test 12/18/19 06:38 White Blood Count 5.5 x10^3/uL (4.0-11.0) Red Blood Count 4.55 x10^6/uL (3.50-5.40) Hemoglobin 13.7 g/dL (12.0-15.5) Hematocrit 40.3 % (36.0-47.0) Mean Corpuscular Volume 88 fL (79-100) Mean Corpuscular Hemoglobin 30 pg (25-35) Mean Corpuscular Hemoglobin Concent 34 g/dL (31-37) Red Cell Distribution Width 13.7 % (11.5-14.5) Platelet Count 254 x10^3/uL (140-400) Neutrophils (%) (Auto) 63 % (31-73) Lymphocytes (%) (Auto) 22 % (24-48) L Monocytes (%) (Auto) 11 % (0-9) H Eosinophils (%) (Auto) 3 % (0-3) Basophils (%) (Auto) 1 % (0-3) Neutrophils # (Auto) 3.5 x10^3uL (1.8-7.7) Lymphocytes # (Auto) 1.2 x10^3/uL (1.0-4.8) Monocytes # (Auto) 0.6 x10^3/uL (0.0-1.1) Eosinophils # (Auto) 0.2 x10^3/uL (0.0-0.7) Basophils # (Auto) 0.1 x10^3/uL (0.0-0.2) Sodium Level 142 mmol/L (136-145) Potassium Level 3.9 mmol/L (3.5-5.1) Chloride Level 105 mmol/L (98-107) Carbon Dioxide Level 32 mmol/L (21-32) Anion Gap 5 (6-14) L Blood Urea Nitrogen 14 mg/dL (7-20) Creatinine 0.8 mg/dL (0.6-1.0) Estimated GFR (Cockcroft-Gault) 68.2 BUN/Creatinine Ratio 18 (6-20) Glucose Level 104 mg/dL (70-99) H Calcium Level 9.2 mg/dL (8.5-10.1) Total Bilirubin 0.3 mg/dL (0.2-1.0) Aspartate Amino Transferase (AST) 17 U/L (15-37) Alanine Aminotransferase (ALT) 23 U/L (14-59) Alkaline Phosphatase 50 U/L (46-116) Total Protein 6.2 g/dL (6.4-8.2) L Albumin 3.1 g/dL (3.4-5.0) L Albumin/Globulin Ratio 1.0 (1.0-1.7) Current Medications: Meds: Current Medications Medications (Trade) Dose Ordered Sig/Ed Route PRN Reason Start Time Stop Time Status Last Admin Dose Admin Fluvoxamine Maleate (Luvox) 50 mg DAILY PO 12/18/19 09:00 12/18/19 08:16 I have reviewed the current psychotropics carefully including drug interactions. Risk benefit ratio favors no change other than as noted in my dictated progress note. Diagnosis: Problems: (1) Psychosis (2) Mild cognitive impairment (3) Anxiety disorder, unspecified (4) Major depressive disorder with psychotic features (5) Psychotic disorder (6) Dementia, vascular, with depression (7) Dementia, vascular, with delusions (8) Dementia in Alzheimer's disease with depression (9) Dementia in Alzheimer's disease with delusions SOHAN KEARNS MD December 18, 2019 22:08
[2019-12-19 06:11] VITALS: BP 160/88
[2019-12-19] MEDS: PANTOPRAZOLE 40 MG TABLET. PO SCH (08:07)
[2019-12-19] MEDS: metFORMIN XR 500 MG TAB.ER.24H PO SCH (08:07)
[2019-12-19] MEDS: MULTIVITAMIN I-VITE TABLET. PO SCH (08:07)
[2019-12-19] MEDS: risperiDONE 0.25 MG TABLET. PO SCH ×2 (08:08→21:30)
[2019-12-19] MEDS: OMEGA-3 FATTY ACIDS/FISH OIL 1,000 MG CAPSULE. PO SCH (08:08)
[2019-12-19] MEDS: EZETIMIBE 10 MG TABLET PO SCH (08:08)
[2019-12-19] MEDS: MAGNESIUM OXIDE 400 MG TABLET PO SCH (08:08)
[2019-12-19] MEDS: CHOLECALCIFEROL (VITAMIN D3) 1,000 UNIT TABLET PO SCH (08:08)
[2019-12-19 16:15] VITALS: BP 119/70
[2019-12-19] MEDS: LISINOPRIL 10 MG TABLET PO SCH (21:30)
[2019-12-19] MEDS: ACETAMINOPHEN 500 MG TABLET PO SCH (21:31)
[2019-12-19] MEDS: traZODone 50 MG TABLET. PO SCH (21:31)
[2019-12-19] MEDS: MIRTAZAPINE 15 MG TABLET PO SCH (21:31)
--- NOTE | 2019-12-19 22:05 | PDOC ---
Exam Note: Benjamin Note: Please also refer to the separate dictated note~for this date of service dictated separately.~Patient seen individually. Discussed the patient with Nursing staff reviewed the chart.~Reviewed interim history and current functioning. Reviewed vital signs,~Labs/ Radiology~and current medications noted below. Continue current treatment with the changes noted in the dictated addendum note Assessment: Vital Signs/I&O: Vital Signs Date Time Temp Pulse Resp B/P (MAP) Pulse Ox O2 Delivery O2 Flow Rate FiO2 12/19/19 21:30 102 119/70 12/19/19 16:15 98.1 18 96 12/15/19 16:06 Room Air I & O 12/18/19 12/18/19 12/19/19 15:00 23:00 07:00 Intake Total 840 ml 580 ml Balance 840 ml 580 ml Current Medications: I have reviewed the current psychotropics carefully including drug interactions. Risk benefit ratio favors no change other than as noted in my dictated progress note. Diagnosis: Problems: (1) Psychosis (2) Mild cognitive impairment (3) Anxiety disorder, unspecified (4) Major depressive disorder with psychotic features (5) Psychotic disorder (6) Dementia, vascular, with depression (7) Dementia, vascular, with delusions (8) Dementia in Alzheimer's disease with depression (9) Dementia in Alzheimer's disease with delusions SOHAN KEARNS MD December 19, 2019 22:05
[2019-12-20 05:50] VITALS: BP 148/83
--- NOTE | 2019-12-20 07:31 | PDOC ---
Exam Note: Benjamni Note: This note is a late entry for 12/18/2019 covers elements not covered in my initial note. Subjective: The patient was seen face to face in the evening. Nursing report was with Braulio IVEY. Discussed the patient with nursing staff reviewed the chart. She slept 6-1/2 hours previous night. She has been attending groups. She is sleeping in a chair since she feels better in her chair and hallucinations are less at night. Review of Systems: She is hard of hearing. No CV, GI/, Pulmonary, Eye system symptoms on review. Mental Status Exam: Reasonably oriented. She is very verbal. On specific and direct questioning individually, she states her hallucinations and OCD symptoms are better. Speech coherent. Abstraction is fair. Computation is impaired. Language function is intact. Attention span is short. Mood and affect remains somewhat anxious, labile. Laboratory Data: Reviewed. Impression: Major depressive disorder with psychotic features. Psychotic disorder unspecified. Rest unchanged. Plan: No change from initial note. May need to increase Risperdal and Luvox gradually depending on her progress. Assessment: Vital Signs/I&O: Vital Signs Date Time Temp Pulse Resp B/P (MAP) Pulse Ox O2 Delivery O2 Flow Rate FiO2 12/20/19 05:50 98.0 90 16 148/83 (104) 94 12/15/19 16:06 Room Air I & O 12/19/19 12/19/19 12/20/19 14:59 22:59 06:59 Intake Total 720 ml 360 ml Balance 720 ml 360 ml Current Medications: I have reviewed the current psychotropics carefully including drug interactions. Risk benefit ratio favors no change other than as noted in my dictated progress note. Diagnosis: Problems: (1) Psychosis (2) Mild cognitive impairment (3) Anxiety disorder, unspecified (4) Major depressive disorder with psychotic features (5) Psychotic disorder (6) Dementia, vascular, with depression (7) Dementia, vascular, with delusions (8) Dementia in Alzheimer's disease with depression (9) Dementia in Alzheimer's disease with delusions SOHAN KEARNS MD December 20, 2019 07:30
--- NOTE | 2019-12-20 07:47 | PDOC ---
Exam Note: Benjamin Note: This note is a late entry for 12/19/2019 covers elements not covered in my initial note. Subjective: The patient was seen face to face in the morning with treatment team meeting. Nursing report was with Linda IVEY in the evening. Discussed the patient with nursing staff in the evening reviewed the chart. The patients daughter Meka attended as well. Activity Therapy staff have come up with the fairly robust apps they placed on her evan to help her keep busy with music, audio books, library books, reading material things to keep her mind active in other area so that it does not drift to her hallucinations, seems to be helping. Appetite is 100%. She slept 7 hours previous night. Had a better day. Met with her twice on rounds as she had further questions about OCD differentiating from psychotic symptoms. I addressed this with her at some length. Review of Systems: She is hard of hearing. No CV, GI/, Pulmonary, Eye system symptoms on review. Mental Status Exam: Reasonably oriented. She is pleasant, cooperative, compliant with medications. Hallucinations are better. Speech coherent. Abstraction is fair. Computation is impaired. Language function is intact. Attention span is short. Mood and affect remains somewhat anxious, labile. No suicidal or homicidal ideation. Remains somewhat obsessive with intermittent hallucinations but these are better. Laboratory Data: Reviewed. Impression: Major depressive disorder with psychotic features. Psychotic disorder unspecified. Rest unchanged. Plan: No change from initial note. Assessment: Vital Signs/I&O: Vital Signs Date Time Temp Pulse Resp B/P (MAP) Pulse Ox O2 Delivery O2 Flow Rate FiO2 12/20/19 05:50 98.0 90 16 148/83 (104) 94 12/15/19 16:06 Room Air I & O 12/19/19 12/19/19 12/20/19 15:00 23:00 07:00 Intake Total 720 ml 360 ml Balance 720 ml 360 ml Current Medications: I have reviewed the current psychotropics carefully including drug interactions. Risk benefit ratio favors no change other than as noted in my dictated progress note. Diagnosis: Problems: (1) Psychosis (2) Mild cognitive impairment (3) Anxiety disorder, unspecified (4) Major depressive disorder with psychotic features (5) Psychotic disorder (6) Dementia, vascular, with depression (7) Dementia, vascular, with delusions (8) Dementia in Alzheimer's disease with depression (9) Dementia in Alzheimer's disease with delusions SOHAN KEARNS MD December 20, 2019 07:47
[2019-12-20] MEDS: OMEGA-3 FATTY ACIDS/FISH OIL 1,000 MG CAPSULE. PO SCH (08:15)
[2019-12-20] MEDS: risperiDONE 0.25 MG TABLET. PO SCH ×2 (08:15→20:56)
[2019-12-20] MEDS: MULTIVITAMIN I-VITE TABLET. PO SCH (08:15)
[2019-12-20] MEDS: metFORMIN XR 500 MG TAB.ER.24H PO SCH (08:15)
[2019-12-20] MEDS: EZETIMIBE 10 MG TABLET PO SCH (08:15)
[2019-12-20] MEDS: MAGNESIUM OXIDE 400 MG TABLET PO SCH (08:15)
[2019-12-20] MEDS: PANTOPRAZOLE 40 MG TABLET. PO SCH (08:15)
[2019-12-20] MEDS: CHOLECALCIFEROL (VITAMIN D3) 1,000 UNIT TABLET PO SCH (08:15)
[2019-12-20 15:28] VITALS: BP 109/68
[2019-12-20] MEDS: traZODone 50 MG TABLET. PO SCH (20:55)
[2019-12-20] MEDS: ACETAMINOPHEN 500 MG TABLET PO SCH (20:55)
[2019-12-20] MEDS: MIRTAZAPINE 15 MG TABLET PO SCH (20:56)
[2019-12-20] MEDS: LISINOPRIL 10 MG TABLET PO SCH (20:56)
--- NOTE | 2019-12-20 21:51 | PDOC ---
Exam Note: Benjamin Note: Please also refer to the separate dictated note~for this date of service dictated separately.~Patient seen individually. Discussed the patient with Nursing staff reviewed the chart.~Reviewed interim history and current functioning. Reviewed vital signs,~Labs/ Radiology~and current medications noted below. Continue current treatment with the changes noted in the dictated addendum note Assessment: Vital Signs/I&O: Vital Signs Date Time Temp Pulse Resp B/P (MAP) Pulse Ox O2 Delivery O2 Flow Rate FiO2 12/20/19 20:56 101 109/68 12/20/19 20:52 98.5 95 12/20/19 15:28 16 12/15/19 16:06 Room Air I & O 12/19/19 12/19/19 12/20/19 15:00 23:00 07:00 Intake Total 720 ml 360 ml Balance 720 ml 360 ml Current Medications: I have reviewed the current psychotropics carefully including drug interactions. Risk benefit ratio favors no change other than as noted in my dictated progress note. Diagnosis: Problems: (1) Psychosis (2) Mild cognitive impairment (3) Anxiety disorder, unspecified (4) Major depressive disorder with psychotic features (5) Psychotic disorder (6) Dementia, vascular, with depression (7) Dementia, vascular, with delusions (8) Dementia in Alzheimer's disease with depression (9) Dementia in Alzheimer's disease with delusions SOHAN KEARNS MD December 20, 2019 21:51
[2019-12-21 06:07] VITALS: BP 149/82
[2019-12-21] MEDS: PANTOPRAZOLE 40 MG TABLET. PO SCH (08:23)
[2019-12-21] MEDS: metFORMIN XR 500 MG TAB.ER.24H PO SCH (08:23)
[2019-12-21] MEDS: CHOLECALCIFEROL (VITAMIN D3) 1,000 UNIT TABLET PO SCH (08:23)
[2019-12-21] MEDS: OMEGA-3 FATTY ACIDS/FISH OIL 1,000 MG CAPSULE. PO SCH (08:23)
[2019-12-21] MEDS: MULTIVITAMIN I-VITE TABLET. PO SCH (08:23)
[2019-12-21] MEDS: risperiDONE 0.25 MG TABLET. PO SCH ×2 (08:23→21:18)
[2019-12-21] MEDS: EZETIMIBE 10 MG TABLET PO SCH (08:23)
[2019-12-21] MEDS: MAGNESIUM OXIDE 400 MG TABLET PO SCH (08:23)
[2019-12-21 08:37] LABS: BASO # 0.1 x10^3/uL (0.0-0.2); BASO % 1 % (0-3); EOS # 0.2 x10^3/uL (0.0-0.7); EOS % 3 % (0-3); HEMATOCRIT 42.4 % (36.0-47.0); HEMOGLOBIN 14.1 g/dL (12.0-15.5); LYMPH # 1.3 x10^3/uL (1.0-4.8); LYMPH % 22 % (24-48); MEAN CORPUSCULAR HEMOGLOBIN 30 pg (25-35); MEAN CORPUSCULAR HGB CONC 33 g/dL (31-37); MEAN CORPUSCULAR VOLUME 89 fL (79-100); MONO # 0.6 x10^3/uL (0.0-1.1); MONO % 11 % (0-9); NEUT # 3.8 x10^3uL (1.8-7.7); NEUT % 63 % (31-73); PLATELET COUNT 278 x10^3/uL (140-400); RED BLOOD COUNT 4.75 x10^6/uL (3.50-5.40); RED CELL DISTRIBUTION WIDTH 13.8 % (11.5-14.5)
--- NOTE | 2019-12-21 08:52 | PDOC ---
Exam Note: Benjamin Note: This note is a late entry for 12/20/2019 covers elements not covered in my initial note. Subjective: The patient was seen face to face in the morning of 12/20/2019. Nursing report was with Ruthy IVEY. Discussed the patient with nursing staff reviewed the chart. The patient has been accepted at [facility] for Monday. Overall she is doing better. States all hallucinations are improved. She keeps herself busy with different activities which seem to help hallucinations and obsessiveness. She has had no command hallucinations telling her to do bad things. She slept 10-3/4 hours previous night. Review of Systems: She is hard of hearing. No CV, GI/, Pulmonary, Eye system symptoms on review. Mental Status Exam: Reasonably oriented. She is pleasant, cooperative, verbal. Speech coherent. Abstraction is fair. Computation is impaired. Language function is intact. Mood and affect less anxious and less labile. No suicidal or homicidal ideation. Laboratory Data: Reviewed. Impression: Major depressive disorder with psychotic features. Psychotic disorder unspecified. Rest unchanged. Plan: No change from initial note. Assessment: Vital Signs/I&O: Vital Signs Date Time Temp Pulse Resp B/P (MAP) Pulse Ox O2 Delivery O2 Flow Rate FiO2 12/21/19 08:34 97.9 97 12/21/19 06:07 93 16 149/82 (104) 12/15/19 16:06 Room Air I & O 12/20/19 12/20/19 12/21/19 15:00 23:00 07:00 Intake Total 480 ml 360 ml Balance 480 ml 360 ml Labs: Laboratory Tests Test 12/21/19 07:25 White Blood Count 6.0 x10^3/uL (4.0-11.0) Red Blood Count 4.75 x10^6/uL (3.50-5.40) Hemoglobin 14.1 g/dL (12.0-15.5) Hematocrit 42.4 % (36.0-47.0) Mean Corpuscular Volume 89 fL (79-100) Mean Corpuscular Hemoglobin 30 pg (25-35) Mean Corpuscular Hemoglobin Concent 33 g/dL (31-37) Red Cell Distribution Width 13.8 % (11.5-14.5) Platelet Count 278 x10^3/uL (140-400) Neutrophils (%) (Auto) 63 % (31-73) Lymphocytes (%) (Auto) 22 % (24-48) L Monocytes (%) (Auto) 11 % (0-9) H Eosinophils (%) (Auto) 3 % (0-3) Basophils (%) (Auto) 1 % (0-3) Neutrophils # (Auto) 3.8 x10^3uL (1.8-7.7) Lymphocytes # (Auto) 1.3 x10^3/uL (1.0-4.8) Monocytes # (Auto) 0.6 x10^3/uL (0.0-1.1) Eosinophils # (Auto) 0.2 x10^3/uL (0.0-0.7) Basophils # (Auto) 0.1 x10^3/uL (0.0-0.2) Current Medications: I have reviewed the current psychotropics carefully including drug interactions. Risk benefit ratio favors no change other than as noted in my dictated progress note. Diagnosis: Problems: (1) Psychosis (2) Mild cognitive impairment (3) Anxiety disorder, unspecified (4) Major depressive disorder with psychotic features (5) Psychotic disorder (6) Dementia, vascular, with depression (7) Dementia, vascular, with delusions (8) Dementia in Alzheimer's disease with depression (9) Dementia in Alzheimer's disease with delusions SOHAN KEARNS MD December 21, 2019 08:52
[2019-12-21 08:58] LABS: ALBUMIN 3.4 g/dL (3.4-5.0); CALCIUM 9.2 mg/dL (8.5-10.1); CREATININE 0.8 mg/dL (0.6-1.0); GFR 68.2; POTASSIUM 3.9 mmol/L (3.5-5.1); TOTAL BILIRUBIN 0.3 mg/dL (0.2-1.0); TOTAL PROTEIN 6.8 g/dL (6.4-8.2)
[2019-12-21 15:28] VITALS: BP 128/74
[2019-12-21] MEDS: traZODone 50 MG TABLET. PO SCH (21:17)
[2019-12-21] MEDS: MIRTAZAPINE 15 MG TABLET PO SCH (21:17)
[2019-12-21] MEDS: LISINOPRIL 10 MG TABLET PO SCH (21:18)
[2019-12-21] MEDS: ACETAMINOPHEN 500 MG TABLET PO SCH (21:18)
--- NOTE | 2019-12-21 21:56 | PDOC ---
Exam Note: Benjamin Note: Please also refer to the separate dictated note~for this date of service dictated separately.~Patient seen individually. Discussed the patient with Nursing staff reviewed the chart.~Reviewed interim history and current functioning. Reviewed vital signs,~Labs/ Radiology~and current medications noted below. Continue current treatment with the changes noted in the dictated addendum note Assessment: Vital Signs/I&O: Vital Signs Date Time Temp Pulse Resp B/P (MAP) Pulse Ox O2 Delivery O2 Flow Rate FiO2 12/21/19 21:18 109 128/74 12/21/19 20:59 98.6 94 12/21/19 15:28 18 12/15/19 16:06 Room Air I & O 12/20/19 12/20/19 12/21/19 14:59 22:59 06:59 Intake Total 480 ml 360 ml Balance 480 ml 360 ml Labs: Laboratory Tests Test 12/21/19 07:25 White Blood Count 6.0 x10^3/uL (4.0-11.0) Red Blood Count 4.75 x10^6/uL (3.50-5.40) Hemoglobin 14.1 g/dL (12.0-15.5) Hematocrit 42.4 % (36.0-47.0) Mean Corpuscular Volume 89 fL (79-100) Mean Corpuscular Hemoglobin 30 pg (25-35) Mean Corpuscular Hemoglobin Concent 33 g/dL (31-37) Red Cell Distribution Width 13.8 % (11.5-14.5) Platelet Count 278 x10^3/uL (140-400) Neutrophils (%) (Auto) 63 % (31-73) Lymphocytes (%) (Auto) 22 % (24-48) L Monocytes (%) (Auto) 11 % (0-9) H Eosinophils (%) (Auto) 3 % (0-3) Basophils (%) (Auto) 1 % (0-3) Neutrophils # (Auto) 3.8 x10^3uL (1.8-7.7) Lymphocytes # (Auto) 1.3 x10^3/uL (1.0-4.8) Monocytes # (Auto) 0.6 x10^3/uL (0.0-1.1) Eosinophils # (Auto) 0.2 x10^3/uL (0.0-0.7) Basophils # (Auto) 0.1 x10^3/uL (0.0-0.2) Sodium Level 141 mmol/L (136-145) Potassium Level 3.9 mmol/L (3.5-5.1) Chloride Level 104 mmol/L (98-107) Carbon Dioxide Level 32 mmol/L (21-32) Anion Gap 5 (6-14) L Blood Urea Nitrogen 14 mg/dL (7-20) Creatinine 0.8 mg/dL (0.6-1.0) Estimated GFR (Cockcroft-Gault) 68.2 BUN/Creatinine Ratio 18 (6-20) Glucose Level 116 mg/dL (70-99) H Calcium Level 9.2 mg/dL (8.5-10.1) Total Bilirubin 0.3 mg/dL (0.2-1.0) Aspartate Amino Transferase (AST) 21 U/L (15-37) Alanine Aminotransferase (ALT) 27 U/L (14-59) Alkaline Phosphatase 56 U/L (46-116) Total Protein 6.8 g/dL (6.4-8.2) Albumin 3.4 g/dL (3.4-5.0) Albumin/Globulin Ratio 1.0 (1.0-1.7) Current Medications: Meds: Current Medications Medications (Trade) Dose Ordered Sig/Ed Route PRN Reason Start Time Stop Time Status Last Admin Dose Admin Risperidone (RisperDAL) 0.375 mg HS PO 12/21/19 21:00 12/21/19 21:18 I have reviewed the current psychotropics carefully including drug interactions. Risk benefit ratio favors no change other than as noted in my dictated progress note. Diagnosis: Problems: (1) Psychosis (2) Mild cognitive impairment (3) Anxiety disorder, unspecified (4) Major depressive disorder with psychotic features (5) Psychotic disorder (6) Dementia, vascular, with depression (7) Dementia, vascular, with delusions (8) Dementia in Alzheimer's disease with depression (9) Dementia in Alzheimer's disease with delusions SOHAN KEARNS MD December 21, 2019 21:56
[2019-12-22 06:00] VITALS: BP 146/72
[2019-12-22] MEDS: CHOLECALCIFEROL (VITAMIN D3) 1,000 UNIT TABLET PO SCH (08:27)
[2019-12-22] MEDS: EZETIMIBE 10 MG TABLET PO SCH (08:28)
[2019-12-22] MEDS: PANTOPRAZOLE 40 MG TABLET. PO SCH (08:28)
[2019-12-22] MEDS: OMEGA-3 FATTY ACIDS/FISH OIL 1,000 MG CAPSULE. PO SCH (08:28)
[2019-12-22] MEDS: metFORMIN XR 500 MG TAB.ER.24H PO SCH (08:28)
[2019-12-22] MEDS: MULTIVITAMIN I-VITE TABLET. PO SCH (08:28)
[2019-12-22] MEDS: MAGNESIUM OXIDE 400 MG TABLET PO SCH (08:29)
[2019-12-22] MEDS: risperiDONE 0.25 MG TABLET. PO SCH ×2 (10:04→19:44)
[2019-12-22 16:21] VITALS: BP 137/72
[2019-12-22] MEDS: LISINOPRIL 10 MG TABLET PO SCH (19:43)
[2019-12-22] MEDS: MIRTAZAPINE 15 MG TABLET PO SCH (19:43)
[2019-12-22] MEDS: traZODone 50 MG TABLET. PO SCH (19:43)
[2019-12-22] MEDS: ACETAMINOPHEN 500 MG TABLET PO SCH (19:44)
--- NOTE | 2019-12-22 22:07 | PDOC ---
Exam Note: Benjamin Note: Please also refer to the separate dictated note~for this date of service dictated separately.~Patient seen individually. Discussed the patient with Nursing staff reviewed the chart.~Reviewed interim history and current functioning. Reviewed vital signs,~Labs/ Radiology~and current medications noted below. Continue current treatment with the changes noted in the dictated addendum note Assessment: Vital Signs/I&O: Vital Signs Date Time Temp Pulse Resp B/P (MAP) Pulse Ox O2 Delivery O2 Flow Rate FiO2 12/22/19 21:07 98.6 96 12/22/19 19:43 96 137/72 12/22/19 06:00 18 I & O 12/21/19 12/21/19 12/22/19 15:00 23:00 07:00 Intake Total 1080 ml 480 ml Balance 1080 ml 480 ml Current Medications: Meds: Current Medications Medications (Trade) Dose Ordered Sig/Ed Route PRN Reason Start Time Stop Time Status Last Admin Dose Admin Risperidone (RisperDAL) 0.25 mg DAILY PO 12/22/19 09:00 12/22/19 10:04 I have reviewed the current psychotropics carefully including drug interactions. Risk benefit ratio favors no change other than as noted in my dictated progress note. Diagnosis: Problems: (1) Psychosis (2) Mild cognitive impairment (3) Anxiety disorder, unspecified (4) Major depressive disorder with psychotic features (5) Psychotic disorder (6) Dementia, vascular, with depression (7) Dementia, vascular, with delusions (8) Dementia in Alzheimer's disease with depression (9) Dementia in Alzheimer's disease with delusions SOHAN KEARNS MD December 22, 2019 22:07
[2019-12-22] MEDS ORDERED: MAGN24003 PO (22:57)
[2019-12-22] MEDS ORDERED: MAG-95 PO (22:57)
[2019-12-22] MEDS ORDERED: METH28OI2 TP (22:58)
[2019-12-22] MEDS ORDERED: RISP0.5T24 PO ×2 (22:59)
[2019-12-22] MEDS ORDERED: TRAZ-120 PO ×2 (23:00→23:01)
[2019-12-23 06:18] VITALS: BP 159/81
[2019-12-23] MEDS ORDERED: ACET325T21 PO (07:39)
[2019-12-23] MEDS ORDERED: OLAN5TAB7 PO (07:39)
--- NOTE | 2019-12-23 07:54 | PDOC ---
Exam Note: Benjamin Note: This note is a late entry for 12/21/2019 covers elements not covered in my initial note. Subjective: The patient was seen face to face in the morning of 12/21/2019. Nursing report was with Ruthy IVEY. Discussed the patient with nursing staff reviewed the chart. She slept 8 hours previous night. Previous evening Ron nursing staff said patient him she had no hallucinations but then she told the daughter that she was still having active hallucinations. She made a comment to the daughter that she would surprise the daughter and daughter was unclear of this. I processed this with the patient. She denies any command hallucinations. She states she can hear some music in the background. Review of Systems: She is hard of hearing. No CV, GI/, Pulmonary, Eye system symptoms on review. Mental Status Exam: Reasonably oriented. Speech is coherent. Abstraction is fair. Computation is impaired. Language function is intact. Mood and affect somewhat anxious, withdrawn at times, more animated at other times. No suicidal or homicidal ideation. Laboratory Data: Reviewed. Impression: Major depressive disorder with psychotic features. Psychotic disorder unspecified. Rest unchanged. Plan: No change from initial note. The patient is currently on Risperdal 0.25 mg b.i.d. Given her ongoing hallucinations even though these are not command hallucinations we will increase to 0.25 mg in the morning and 0.375 mg h.s. Continue rest unchanged including Luvox 50 mg a day. Assessment: Vital Signs/I&O: Vital Signs Date Time Temp Pulse Resp B/P (MAP) Pulse Ox O2 Delivery O2 Flow Rate FiO2 12/23/19 06:18 97.6 90 18 159/81 (107) 92 I & O 12/22/19 12/22/19 12/23/19 15:00 23:00 07:00 Intake Total 600 ml 360 ml Balance 600 ml 360 ml Current Medications: Meds: Current Medications Medications (Trade) Dose Ordered Sig/Ed Route PRN Reason Start Time Stop Time Status Last Admin Dose Admin Risperidone (RisperDAL) 0.25 mg DAILY PO 12/22/19 09:00 12/22/19 10:04 I have reviewed the current psychotropics carefully including drug interactions. Risk benefit ratio favors no change other than as noted in my dictated progress note. Diagnosis: Problems: (1) Psychosis (2) Mild cognitive impairment (3) Anxiety disorder, unspecified (4) Major depressive disorder with psychotic features (5) Psychotic disorder (6) Dementia, vascular, with depression (7) Dementia, vascular, with delusions (8) Dementia in Alzheimer's disease with depression (9) Dementia in Alzheimer's disease with delusions SOHAN KEARNS MD Dec 23, 2019 07:54
[2019-12-23] MEDS: PANTOPRAZOLE 40 MG TABLET. PO SCH (08:16)
[2019-12-23] MEDS: EZETIMIBE 10 MG TABLET PO SCH (08:17)
[2019-12-23] MEDS: CHOLECALCIFEROL (VITAMIN D3) 1,000 UNIT TABLET PO SCH (08:17)
[2019-12-23] MEDS: MULTIVITAMIN I-VITE TABLET. PO SCH (08:17)
[2019-12-23] MEDS: MAGNESIUM OXIDE 400 MG TABLET PO SCH (08:17)
[2019-12-23] MEDS: OMEGA-3 FATTY ACIDS/FISH OIL 1,000 MG CAPSULE. PO SCH (08:17)
[2019-12-23] MEDS: risperiDONE 0.25 MG TABLET. PO SCH (08:17)
[2019-12-23] MEDS: metFORMIN XR 500 MG TAB.ER.24H PO SCH (08:17)
--- NOTE | 2019-12-23 22:16 | PDOC ---
Exam Note: Benjamin Note: Please also refer to the separate dictated note~for this date of service dictated separately.~Patient seen individually. Discussed the patient with Nursing staff reviewed the chart.~Reviewed interim history and current functioning. Reviewed vital signs,~Labs/ Radiology~and current medications noted below. Continue current treatment with the changes noted in the dictated addendum note Assessment: Vital Signs/I&O: Vital Signs Date Time Temp Pulse Resp B/P (MAP) Pulse Ox O2 Delivery O2 Flow Rate FiO2 12/23/19 06:18 97.6 90 18 159/81 (107) 92 I & O 12/22/19 12/22/19 12/23/19 15:00 23:00 07:00 Intake Total 600 ml 360 ml Balance 600 ml 360 ml Current Medications: I have reviewed the current psychotropics carefully including drug interactions. Risk benefit ratio favors no change other than as noted in my dictated progress note. Diagnosis: Problems: (1) Mild cognitive impairment (2) Anxiety disorder, unspecified (3) Major depressive disorder with psychotic features (4) Psychotic disorder (5) Dementia, vascular, with depression (6) Dementia, vascular, with delusions (7) Dementia in Alzheimer's disease with depression (8) Dementia in Alzheimer's disease with delusions SOHAN KEARNS MD Dec 23, 2019 22:16
--- NOTE | 2019-12-23 22:37 | DS ---
DATE OF DISCHARGE: 12/23/2019 DISCHARGE SUMMARY/PSYCHIATRIC PROGRESS NOTE. This note covers the elements not covered in my initial note of 12/23/2019. IDENTIFYING DATA: The patient is an 84-year-old female referred from home by her primary care physician on account of worsening psychotic symptoms. She was having increased anxiety, marked insomnia, auditory hallucinations. She thought her neighbors can hear her and were watching her via the camera and installed electronics in her brain to track her. The patient had been increasingly paranoid, suspicious, had failed outpatient psychiatric interventions, referred for inpatient psychiatric stabilization. SIGNIFICANT FINDINGS AND CLINICAL COURSE: Following admission, the patient was seen daily individually by myself from a psychiatric standpoint, medical followup with Dr. Vale/Dr Norris. CT head showed some chronic microvascular changes, no acute changes. She was quite psychotic, actively hearing music and voices commenting on her and telling her that she is going to be killed or her family members, specifically her daughter was going to be hurt. The patient will be quite terrified of all of this, which would worsen the evening. Adjustments were made in her psychotropics and she seemed to respond to a combination of Remeron 7.5 mg at bedtime to help with insomnia and anxiety; Zyprexa was used p.r.n.; Risperdal was very slowly increased to 0.25 mg a.m. and 0.375 mg at bedtime; trazodone 25 mg at bedtime, may repeat x 1; Benadryl p.r.n.; Luvox increasing to 50 mg a day for her OCD symptoms after she failed a prior dose reduction on Effexor from the 225 mg she was taking at admission down to 150 mg a day and further reduction following that with some lessened stimulation of her hallucinations. Nevertheless, she seemed to do better with OCD symptoms on the Luvox and this may need to be adjusted further as an outpatient. REVIEW OF SYSTEMS: Prior to discharge, 12/23/2019, hard of hearing. No CV, , pulmonary, eye system symptoms on review. MENTAL STATUS EXAM: Reasonably oriented. Speech is coherent, has some latency. Abstraction fair, computation impaired, language function intact, attention span short. Mood and affect less withdrawn. She is still having the auditory hallucinations, but much less intense at discharge. No suicidal or homicidal ideation at discharge. CONDITION AT DISCHARGE: Improved. FINAL DIAGNOSES: Major neurocognitive disorder, early; vascular with delusions versus psychotic disorder, unspecified; symptoms of obsessive compulsive disorder, anxiety disorder, unspecified; mild cognitive impairment. Rest unchanged from admission. DISCHARGE MEDICATIONS: Please refer to the MRAD. DISCHARGE INSTRUCTIONS: Outpatient psychiatric and medical followup at the facility she was transitioning to at discharge. Time for discharge day management greater than 30 minutes. SOHAN KEARNS MD DR: MATT/heri JOB#: [id number] / [id number]
== END 2019-12-23 09:30 | DRG 885 ==
LOC: ER 10:53 → GEROPSY 13:37
PROVIDERS: ADMIT Psychiatry & Neurology Psychiatry; ATTEND Psychiatry & Neurology Psychiatry
DX: F33.3 Major depressive disorder, recurrent, severe with psychotic symptoms (principal); E11.9 Type 2 diabetes mellitus without complications; E55.9 Vitamin D deficiency, unspecified; E78.5 Hyperlipidemia, unspecified; F01.50 Vascular dementia, unspecified severity, without behavioral disturbance, psychotic disturbance, mood disturbance, and anxiety; F02.80 Dementia in other diseases classified elsewhere, unspecified severity, without behavioral disturbance, psychotic disturbance, mood disturbance, and anxiety; F41.9 Anxiety disorder, unspecified; G30.9 Alzheimer's disease, unspecified; G47.00 Insomnia, unspecified; I10 Essential (primary) hypertension; M15.9 Polyosteoarthritis, unspecified; M35.3 Polymyalgia rheumatica; Z66 Do not resuscitate; Z79.899 Other long term (current) drug therapy; Z88.8 Allergy status to other drugs, medicaments and biological substances; Z03.818 Encounter for observation for suspected exposure to other biological agents ruled out
CPT/HCPCS: 36415; 70450; 80048; 80053; 80061; 81001; 82306; 82607; 83036; 83540; 83550; 83735; 84436; 84443; 84480; 85025; 85027; 86140; 86592; 93005; Q0163; 97530; 99285-25; U0003-CS